=== PATIENT | female | born 1965 | race Caucasian/White ===

== ENCOUNTER 2017-07-10 06:46 | Day surgery (SDC) | payer MEDICARE, MEDICAID ==
[~2017-07-10 06:46] MED LIST: Lactated Ringers 1,000 ML IV SCH; Sodium Chloride 0.9% 10 ML Syringe FLUSH PRN
[2017-07-10] MEDS ORDERED: Midazolam 1 MG/ML 2 ML SDV IV ONE (08:00)
[2017-07-10] MEDS ORDERED: Propofol 200 MG/20 ML SDV IV ONE (08:00)
--- NOTE | 2017-07-10 08:24 | PCM.OPNOTE ---
- General Post-Op/Procedure Note Date of Surgery/Procedure: 07/10/17 Operative Procedure(s): c scope with bx Findings: proctitis sigmoid diverticulosis Pre Op Diagnosis: screening Post-Op Diagnosis: proctitis. sigmoid diverticulosis Anesthesia Technique: MAC Primary Surgeon: Ron Rodriguez Anesthesia Provider: Rossy Garcia Pathology: rectum Complications: None Condition: Good Free Text/Narrative:: see dictation
[2017-07-10 13:39] VITALS: BP 116/79
--- NOTE | 2017-07-10 16:23 | OR ---
DATE OF OPERATION: 07/10/2017 SURGEON: Ron Rodriguez MD PROCEDURE PERFORMED: Colonoscopy with cold forceps biopsy. PREOPERATIVE DIAGNOSIS: Screening colonoscopy for colon cancer. POSTOPERATIVE DIAGNOSIS: Proctitis, sigmoid diverticulosis. INDICATIONS FOR PROCEDURE: This is a 52-year-old white female who presents for her initial screening colonoscopy. She was offered and accepted same. DESCRIPTION OF OPERATION: After an excellent IV sedation was administered, digital rectal exam was performed. No marked abnormality was noted. Flexible colonoscope was inserted and advanced to the cecum without difficulty. The prep was excellent. The following findings were noted. Ascending colon, unremarkable. Transverse colon, unremarkable. Descending colon, unremarkable. Sigmoid, scattered diverticula. Rectum, the distal rectum was noted to be inflamed. Biopsies were taken. It is not sure if this was just a result of her prep or this represents a significant pathologic process. The colon was deflated as the scope was removed. The patient tolerated the procedure well and was taken to recovery in good condition. /[id number] /MODL
== END 2017-07-10 09:33 | disposition home or self-care (01) ==
LOC: FB.SDS 06:46
PROVIDERS: ATTEND Surgery
DX: Z12.11 Encounter for screening for malignant neoplasm of colon (principal); K57.30 Diverticulosis of large intestine without perforation or abscess without bleeding; F41.1 Generalized anxiety disorder; F33.0 Major depressive disorder, recurrent, mild; K21.9 Gastro-esophageal reflux disease without esophagitis; Z88.0 Allergy status to penicillin; Z88.1 Allergy status to other antibiotic agents; Z88.8 Allergy status to other drugs, medicaments and biological substances; Z79.2 Long term (current) use of antibiotics; Z79.899 Other long term (current) drug therapy
CPT/HCPCS: 00812-QZ; 88305; J2250; J2704; J7120

== ENCOUNTER 2017-11-11 09:40 | Emergency (ER) | payer MEDICARE, MEDICAID ==
[2017-11-11] MEDS: Ondansetron 4 MG Tab.DIS PO SCH (10:23)
[2017-11-11] MEDS: HYDROmorphone 2 MG/ML SDV IM ONE (10:23)
[2017-11-11 11:47] VITALS: BP 102/67
--- NOTE | 2017-11-11 11:52 | CT ---
INDICATION: Fell, knocked down by dogs. CT THORACIC SPINE: Spiral 2.5 mm axial sections were obtained through the thoracic spine and revealed degenerative changes at posterior elements of upper levels times two and off vertebral bodies anteriorly at three lower middle thoracic levels. Vertebral body and disk heights were fairly well-maintained without a definite fracture or dislocation identified. No finding to suggest spinal stenosis is identified. Total exam DLP = 232.64 mGy-cm. A multicystic dysplastic appearing left kidney is noted. The right kidney appeared relatively normal. Lungs included on the study showed no gross active disease. There were some probable subpleural lymph nodes present. No definite mediastinal abnormality was identified. IMPRESSION: 1. No definite acute fracture or dislocation. 2. Osteoarthritis. 3. Multicystic dysplastic left kidney partly visualized. Report was given in person to Dr. Castillo this a.mKt on 11/11/2017. LYNN
--- NOTE | 2017-11-11 11:56 | CT ---
INDICATION: Fell, knocked down by dogs. CT LUMBOSACRAL SPINE: Spiral 2.5 mm axial sections were obtained through the lumbosacral spine, including lower thoracic area, and revealed vertebral body and disk heights to be maintained without evidence of an acute fracture or dislocation. No spinal stenosis was identified. Total exam DLP = 304.43 mGy-cm. No significant appearing hypertrophic degenerative changes are noted. Sacroiliac joints also appear to be intact. No gross disk herniation is seen. IMPRESSION: No acute fracture or dislocation of lumbosacral spine and lower thoracic spine included. Report was given in person to Dr. Castillo this a.m. on 11/11/2017. LYNN
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
== END 2017-11-11 11:55 | disposition home or self-care (01) ==
LOC: FB.ED 09:40
DX: S39.012A Strain of muscle, fascia and tendon of lower back, initial encounter (principal); M46.90 Unspecified inflammatory spondylopathy, site unspecified; W18.39XA Other fall on same level, initial encounter
CPT/HCPCS: 72128; 72131; 96372; 99283; A9270; J1170

== ENCOUNTER 2017-12-13 20:41 | Emergency (ER) | payer MEDICARE, MEDICAID ==
[2017-12-13] MEDS ORDERED: Meclizine 25 MG Tab PO STA (21:04)
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
[2017-12-13] MEDS ORDERED: Ondansetron 8 MG Tab.DIS PO ONE (21:21)
[2017-12-13] MEDS ORDERED: Meclizine 25 MG Tab PO ONE (22:18)
[2017-12-13] MEDS ORDERED: Ondansetron 4 MG Tab.DIS PO ONE (22:18)
[2017-12-13 22:26] VITALS: BP 102/69
== END 2017-12-13 22:32 | disposition home or self-care (01) ==
LOC: FB.ED 20:41
DX: H81.12 Benign paroxysmal vertigo, left ear (principal); I10 Essential (primary) hypertension; J44.9 Chronic obstructive pulmonary disease, unspecified; Z88.0 Allergy status to penicillin; Z88.8 Allergy status to other drugs, medicaments and biological substances; Z88.5 Allergy status to narcotic agent; Z79.899 Other long term (current) drug therapy
CPT/HCPCS: 99283; A9270

== ENCOUNTER 2018-09-12 11:02 | Emergency (ER) | payer MEDICARE, MEDICAID ==
[2018-09-12] MEDS ORDERED: Sodium Chloride 0.9% 10 ML Syringe FLUSH PRN (11:33)
--- NOTE | 2018-09-12 11:36 | EDM.PDOC ---
ED HPI GENERAL MEDICAL PROBLEM - General Chief Complaint: Neurological Problem Stated Complaint: HEADACHE, DIZZY, SPEECH Time Seen by Provider: 09/12/18 11:02 Source of Information: Reports: Patient, Family History Limitations: Reports: No Limitations - History of Present Illness INITIAL COMMENTS - FREE TEXT/NARRATIVE: 53 y.o.w.f with a H/O traumatic brain injury, came to the ed because she did not feel well last night and was not able to walk this am. Her sister picked her up and brought her to the ED. Pt did not c/o any pain but had difficulty to express herself verbally by not finding the right words. Occ her speech was slurred. Pt denies H/A. No N/V/D. She has a H/O Vertigo. No other acute medical issues. BP 121/86 RR 20 Temp 98.2 pulse 77 Pulse ox 99% on RA Onset Date: 09/11/18 Onset Time: 17:00 Duration: Hour(s):, Day(s):, Getting Worse, Intermittent Location: Reports: Head Quality: Reports: Other (slurrd speech) Severity: Moderate Improves with: Reports: None Worsens with: Reports: None Context: Reports: Other (H/O Traumatic Brain injuriy) Associated Symptoms: Reports: Confusion, Weakness (Ataxia) Headache Pain Score (Numeric/FACES): 4 - Related Data Allergies Allergy/AdvReac Type Severity Reaction Status Date / Time metoclopramide HCl Allergy Itching Verified 09/12/18 13:02 [From Reglan] Penicillins Allergy Hives Verified 09/12/18 13:02 aspirin AdvReac Stomach Verified 09/12/18 13:02 Upset codeine AdvReac Vomiting Verified 09/12/18 13:02 ibuprofen [From Motrin] AdvReac Stomach Verified 09/12/18 13:02 Upset ranitidine HCl [From Zantac] AdvReac Stomach Verified 09/12/18 13:02 Upset tetracycline [Tetracycline] AdvReac Stomach Verified 09/12/18 13:02 Upset Home Meds: Home Meds Montelukast [Singulair] 10 mg PO DAILY 03/15/13 [History] Propranolol [Inderal] 10 mg PO BID 03/15/13 [History] Topiramate [Topamax] 150 mg PO BEDTIME 03/15/13 [History] busPIRone [Buspar] 20 mg PO BID 03/15/13 [History] Calcium Carbonate/Vitamin D3 [Calcium 600 + Vit D Tablet] 2 each PO DAILY [History] Fluticasone Furoate [Veramyst] 2 spray MUKUL DAILY 01/10/14 [History] B Complex With Vitamin C [Support-500] 1 each PO DAILY 07/09/17 [History] L.acidoph,Paracasei, B.lactis [Probiotic] 1 each PO DAILY 07/09/17 [History] Multivitamin [Multi-Day Vitamins] 1 each PO DAILY 07/09/17 [History] Psyllium [Metamucil] 1 gm PO DAILY 07/09/17 [History] Methocarbamol [Robaxin-750] 750 mg PO Q6HR PRN #60 tablet 11/11/17 [Rx] Past Medical History HEENT History: Reports: Impaired Vision Cardiovascular History: Reports: Hypertension Respiratory History: Reports: Asthma, COPD Gastrointestinal History: Reports: GERD 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 Psychiatric History: Reports: Anxiety, Bipolar, Depression, Panic Attack Endocrine/Metabolic History: Reports: None Hematologic History: Reports: None Immunologic History: Reports: None Oncologic (Cancer) History: Reports: None Dermatologic History: Reports: None - Past Surgical History HEENT Surgical History: Reports: Oral Surgery Cardiovascular Surgical History: Reports: None Respiratory Surgical History: Reports: None GI Surgical History: Reports: Appendectomy, Cholecystectomy Female Surgical History: Reports: Hysterectomy, Salpingo-Oophorectomy Endocrine Surgical History: Reports: None Neurological Surgical History: Reports: None Musculoskeletal Surgical History: Reports: Arthroscopic Knee, Carpal Tunnel, Knee Replacement, Shoulder Surgery Oncologic Surgical History: Reports: None Social & Family History - Family History Family Medical History: Noncontributory - Caffeine Use Caffeine Use: Reports: None - Living Situation & Occupation Living situation: Reports: ED ROS GENERAL - Review of Systems Review Of Systems: See Below Constitutional: Reports: Weakness HEENT: Reports: Vertigo Respiratory: Reports: No Symptoms Cardiovascular: Reports: No Symptoms Endocrine: Reports: No Symptoms GI/Abdominal: Reports: No Symptoms : Reports: No Symptoms Musculoskeletal: Reports: No Symptoms Skin: Reports: No Symptoms Neurological: Reports: Confusion, Trouble Speaking, Difficulty Walking, Weakness , Gait Disturbance Psychiatric: Reports: No Symptoms Hematologic/Lymphatic: Reports: No Symptoms Immunologic: Reports: No Symptoms ED EXAM, NEURO - Physical Exam Exam: See Below Exam Limited By: No Limitations General Appearance: Alert, WD/WN, Moderate Distress Eye Exam: Bilateral Eye: Nystagmus (bilat) Ears: Normal External Exam Nose: Normal Inspection, Normal Mucosa Throat/Mouth: Normal Inspection, Normal Lips, Normal Voice, No Airway Compromise Head Exam: Atraumatic, Normocephalic Neck: Normal Inspection, Supple, Non-Tender, Full Range of Motion Respiratory/Chest: No Respiratory Distress, Lungs Clear, Normal Breath Sounds, No Accessory Muscle Use, Chest Non-Tender Cardiovascular: Normal Peripheral Pulses, Regular Rate, Rhythm, No Edema, No Gallop, No JVD, No Murmur GI/Abdominal: Normal Bowel Sounds, Soft, Non-Tender, No Organomegaly, No Distention, No Abnormal Bruit, No Mass, Pelvis Stable (Female) Exam: Deferred Rectal (Female) Exam: Deferred Neurological: Alert, Normal Mood/Affect, Normal Dorsiflexion, CN II-XII Intact, Abnormal Gait, Ataxia Back Exam: Normal Inspection, Full Range of Motion Extremities: Normal Inspection, Normal Range of Motion, Non-Tender, No Pedal Edema Psychiatric: Normal Affect, Normal Mood Skin Exam: Warm, Dry, Intact, Normal Color, No Rash EKG INTERPRETATION EKG Date: 09/12/18 Time: 12:05 Rhythm: NSR Rate (Beats/Min): 63 [place]: Normal P-Wave: Present QRS: Normal ST-T: Normal QT: Normal Comparison: NA - No Prior EKG Course - Vital Signs Text/Narrative:: 53 y.o.w.f with a H/O traumatic brain injury, came to the ed because she did not feel well last night and was not able to walk this am. Her sister picked her up and brought her to the ED. Pt did not c/o any pain but had difficulty to express herself verbally by not finding the right words. Occ her speech was slurred. Pt denies H/A. No N/V/D. She has a H/O Vertigo. No other acute medical issues. BP 121/86 RR 20 Temp 98.2 pulse 77 Pulse ox 99% on RA PE: WNWD W F with Ataxia, slurred speech and word finding difficulties Imaging: CT head: Small lacunar infarct left BG Labs: CBC nl exept WBC 4.1 BMP nl except Cr .1 GFR 50 Impression: Ataxia, Aphasia (Word finding difficulties, slurred speech). Lacunar infarct left basal ganglia Tx: non. Pt is allergic to ASA 1.25 pm Consultation: Dr Mdcowell, Neurology [facility]: Call Hospitalist. 1.40 pm Consultation: Dr. Tay, Hospitalist: Sent to [place] 1.[address] Cano, Hospitalist, [facility]: No further Tx recommended, Accepted the Pt for transfer and further care. Reexam: pt was stable in the ED Plan: Transfer to [facility], agreed Last Recorded V/S: Last Vital Signs Temp 36.9 C 09/12/18 11:05 Pulse 68 09/12/18 14:04 Resp 19 09/12/18 14:04 BP 117/80 09/12/18 14:04 Pulse Ox 100 09/12/18 14:04 - Orders/Labs/Meds Labs: Laboratory Tests 09/12/18 09/12/18 09/12/18 Range/Units 11:45 11:45 11:45 WBC 4.1 L (4.5-12.0) X10-3/uL RBC 4.53 (3.23-5.20) x10(6)uL Hgb 13.6 (11.5-15.5) g/dL Hct 41.6 (30.0-51.3) % MCV 91.9 (80-96) fL MCH 30.0 (27.7-33.6) pg MCHC 32.7 (32.2-35.4) g/dL RDW 11.7 (11.5-15.5) % Plt Count 242 (125-369) X10(3)uL MPV 6.7 L (7.4-10.4) fL Neut % (Auto) 59.8 (46-82) % Lymph % (Auto) 29.7 (13-37) % [place] % (Auto) 9.7 (4-12) % Eos % (Auto) 0 L (1.0-5.0) % Baso % (Auto) 1 (0-2) % Neut # (Auto) 2.5 (1.6-8.3) # Lymph # (Auto) 1.2 (0.6-5.0) # [place] # (Auto) 0.4 (0.0-1.3) # Eos # (Auto) 0.0 (0.0-0.8) # Baso # (Auto) 0.0 (0.0-0.2) # PT 10.2 (8.7-11.1) INR 1.05 (0.89-1.13) Sodium 141 (135-145) mmol/L Potassium 4.5 (3.5-5.3) mmol/L Chloride 107 (100-110) mmol/L Carbon Dioxide 27 (21-32) mmol/L BUN 17 (7-18) mg/dL Creatinine 1.1 H (0.55-1.02) mg/dL Est Cr Clr Drug Dosing TNP Estimated GFR (MDRD) 52 L (>60) BUN/Creatinine Ratio 15.5 (9-20) Glucose 96 (80-116) mg/dL Calcium 9.2 (8.6-10.2) mg/dL Urine Color (YELLOW) Urine Appearance (CLEAR) Urine pH (5.0-6.5) Ur Specific [place] (1.010-1.025) Urine Protein (NEGATIVE) mg/dL Urine Glucose (UA) (NORMAL) mg/dL Urine Ketones (NEGATIVE) mg/dL Urine Occult Blood (NEGATIVE) Urine Nitrite (NEGATIVE) Urine Bilirubin (NEGATIVE) Urine Urobilinogen (NEGATIVE) mg/dL Ur Leukocyte Esterase (NEGATIVE) Urine WBC (0-5) Ur Squamous Epith Cells (NS,R,O) Urine Bacteria (NS) 09/12/18 Range/Units 12:40 WBC (4.5-12.0) X10-3/uL RBC (3.23-5.20) x10(6)uL Hgb (11.5-15.5) g/dL Hct (30.0-51.3) % MCV (80-96) fL MCH (27.7-33.6) pg MCHC (32.2-35.4) g/dL RDW (11.5-15.5) % Plt Count (125-369) X10(3)uL MPV (7.4-10.4) fL Neut % (Auto) (46-82) % Lymph % (Auto) (13-37) % [place] % (Auto) (4-12) % Eos % (Auto) (1.0-5.0) % Baso % (Auto) (0-2) % Neut # (Auto) (1.6-8.3) # Lymph # (Auto) (0.6-5.0) # [place] # (Auto) (0.0-1.3) # Eos # (Auto) (0.0-0.8) # Baso # (Auto) (0.0-0.2) # PT (8.7-11.1) INR (0.89-1.13) Sodium (135-145) mmol/L Potassium (3.5-5.3) mmol/L Chloride (100-110) mmol/L Carbon Dioxide (21-32) mmol/L BUN (7-18) mg/dL Creatinine (0.55-1.02) mg/dL Est Cr Clr Drug Dosing Estimated GFR (MDRD) (>60) BUN/Creatinine Ratio (9-20) Glucose (80-116) mg/dL Calcium (8.6-10.2) mg/dL Urine Color Yellow (YELLOW) Urine Appearance Clear (CLEAR) Urine pH 7.0 H (5.0-6.5) Ur Specific [place] 1.015 (1.010-1.025) Urine Protein Negative (NEGATIVE) mg/dL Urine Glucose (UA) Normal (NORMAL) mg/dL Urine Ketones Negative (NEGATIVE) mg/dL Urine Occult Blood Negative (NEGATIVE) Urine Nitrite Negative (NEGATIVE) Urine Bilirubin Negative (NEGATIVE) Urine Urobilinogen Normal (NEGATIVE) mg/dL Ur Leukocyte Esterase Negative (NEGATIVE) Urine WBC 0-5 (0-5) Ur Squamous Epith Cells Rare (NS,R,O) Urine Bacteria Few H (NS) Meds: Medications Discontinued Medications Generic Name Dose Route Start Last Admin Trade Name Freq PRN Reason Stop Dose Admin Meclizine HCl 25 mg 09/12/18 12:11 09/12/18 12:44 Antivert PO 09/12/18 12:12 25 mg ONETIME ONE Administration Sodium Chloride 10 ml 09/12/18 11:33 Saline Flush FLUSH ASDIRECTED PRN Keep Vein Open Departure - Departure Time of Disposition: 14:00 Disposition: DC/Tfer to Acute Hospital 02 Condition: Fair Clinical Impression: Aphasia - Discharge Information Referrals: Dorian Tom MD [Primary Care Provider] - Forms: ED Department Discharge
[2018-09-12] MEDS ORDERED: Meclizine 25 MG Tab PO ONE (12:11)
--- NOTE | 2018-09-12 14:43 | CT ---
INDICATION: Ataxia. CT HEAD WITHOUT CONTRAST: Spiral examination of the brain axially was obtained with sagittal and coronal reconstructions, 09/12/18 - no comparisons. Total exam DLP = 1,348.07 mGy-cm. There is no shift of midline structures or ventricular abnormalities identified. No arterial calcifications were seen. Orbits appear to be intact. There is question of one tiny area of decreased density in the left basal ganglia, which could represent a tiny lacunar infarct but should be correlated clinically. Otherwise, no abnormal areas of density were suggested. If symptoms persist - if occult abnormality is suspected clinically, examination with IV contrast with CT or MRI is recommended for further evaluation. No cranial abnormality was seen. Mastoid air cells and visualized paranasal sinuses were well-aerated. IMPRESSION: Except for question of a tiny lacunar infarct in the left basal ganglia, CT of the head without IV contrast appears normal - no acute intracranial abnormality suggested. I would suggest an MRI or CT with IV contrast, if occult abnormality is suspected clinically. Report was called to Dr. Wolfe at 1236 hours on 09/12/18. [facility]
[2018-09-12 21:40] VITALS: BP 117/80
== END 2018-09-12 14:28 ==
LOC: FB.ED 11:02
DX: I63.81 Other cerebral infarction due to occlusion or stenosis of small artery (principal); R27.0 Ataxia, unspecified; R47.01 Aphasia; Z88.8 Allergy status to other drugs, medicaments and biological substances; Z88.5 Allergy status to narcotic agent; Z88.0 Allergy status to penicillin; Z88.1 Allergy status to other antibiotic agents; I10 Essential (primary) hypertension; J44.9 Chronic obstructive pulmonary disease, unspecified
CPT/HCPCS: 36415; 70450; 80048; 81001; 85025; 85610; 93005; 99285; A9270

== ENCOUNTER 2018-09-26 19:42 | Observation (INO) | payer MEDICARE, MEDICAID ==
--- NOTE | 2018-09-26 20:05 | EDM.PDOC ---
ED HPI GENERAL MEDICAL PROBLEM - General Stated Complaint: STROKE SYMPTOMS Time Seen by Provider: 09/26/18 19:42 Source of Information: Reports: Patient, Family History Limitations: Reports: Other (weak) - History of Present Illness INITIAL COMMENTS - FREE TEXT/NARRATIVE: 53 y.o.w.f with a H/o posttraumatic brain injury > 30 years ago was seen in this ED on 09/12/2018 due to Ataxia, Aphasia, which started > 4 hours [employer] RISK. Pt was transferred to [facility] where she received a complete W/A including MRI which, as per , was all neg. Pt was admitted in [facility] for 3 days. As per , pt was not on a heart monitor while in [facility]. Today, at about 7. 30 pm, pt had a near syncope, after dinner. Her prevented the fall and brought her to the ED. Pt was not able to ambulate, because of right sided weakness with Aphasia, which is > 1 week old, as per . Pt felt some nausea as well. No vomiting, no C/P, no SOB. Pt denied palpitation. No Trauma.Pt is a poor historian, HPI was given by her . BP 114/76 RR 17 Pulse ox 98% on RA Pulse 79 Temp 36.7 Onset Date: 09/26/18 Onset Time: 07:30 Duration: Minutes:, Hour(s): Location: Reports: Generalized Quality: Reports: Other (sudden weakness) Severity: Moderate Improves with: Reports: Other (supine position) Worsens with: Reports: Other (upright position) Context: Reports: Other (pt passed out after dinner at [employer]) Associated Symptoms: Reports: Weakness - Related Data Allergies Allergy/AdvReac Type Severity Reaction Status Date / Time metoclopramide HCl Allergy Itching Verified 09/26/18 20:33 [From Reglan] Penicillins Allergy Hives Verified 09/26/18 20:33 aspirin AdvReac Stomach Verified 09/26/18 20:33 Upset codeine AdvReac Vomiting Verified 09/26/18 20:33 ibuprofen [From Motrin] AdvReac Stomach Verified 09/26/18 20:33 Upset ranitidine HCl [From Zantac] AdvReac Stomach Verified 09/26/18 20:33 Upset tetracycline [Tetracycline] AdvReac Stomach Verified 09/26/18 20:33 Upset Home Meds: Home Meds Montelukast [Singulair] 10 mg PO DAILY 03/15/13 [History] Topiramate [Topamax] 150 mg PO BEDTIME 03/15/13 [History] busPIRone [Buspar] 30 mg PO BID 03/15/13 [History] Cholecalciferol (Vitamin D3) [Vitamin D] 1,000 cap PO DAILY 09/27/18 [History] Propranolol [Inderal] 20 mg PO BID 09/27/18 [History] Venlafaxine HCl [Venlafaxine HCl ER] 300 mg PO DAILY 09/27/18 [History] Past Medical History HEENT History: Reports: Impaired Vision Cardiovascular History: Reports: Hypertension Respiratory History: Reports: Asthma, COPD Gastrointestinal History: Reports: [employer] History: Reports: Neurological History: Reports: Migraines Other Neuro History: Hx traumatic brain injury. Psychiatric History: Reports: Anxiety, Bipolar, Depression, Panic Attack Endocrine/Metabolic History: Reports: None Hematologic History: Reports: None Immunologic History: Reports: None Oncologic (Cancer) History: Reports: None Dermatologic History: Reports: None - Past Surgical History HEENT Surgical History: Reports: Oral Surgery Cardiovascular Surgical History: Reports: None Respiratory Surgical History: Reports: None GI Surgical History: Reports: Appendectomy, Cholecystectomy Female Surgical History: Reports: Hysterectomy, Salpingo-Oophorectomy Endocrine Surgical History: Reports: None Neurological Surgical History: Reports: None Musculoskeletal Surgical History: Reports: Arthroscopic Knee, Carpal Tunnel, Knee Replacement, Shoulder Surgery Oncologic Surgical History: Reports: None Social & Family History - Family History Family Medical History: Noncontributory - Caffeine Use Caffeine Use: Reports: None - Living Situation & Occupation Living situation: Reports: ED ROS GENERAL - Review of Systems Review Of Systems: See Below Constitutional: Reports: Weakness HEENT: Reports: No Symptoms Respiratory: Reports: No Symptoms Cardiovascular: Reports: Syncope Endocrine: Reports: No Symptoms GI/Abdominal: Reports: No Symptoms : Reports: No Symptoms Musculoskeletal: Reports: No Symptoms Skin: Reports: No Symptoms Neurological: Reports: Syncope Psychiatric: Reports: No Symptoms Hematologic/Lymphatic: Reports: No Symptoms Immunologic: Reports: No Symptoms ED EXAM, NEURO - Physical Exam Exam: See Below Exam Limited By: Other (weak) General Appearance: Alert, WD/WN, Mild Distress, Thin Eye Exam: Bilateral Eye: Normal Inspection Ears: Normal External Exam Nose: Normal Inspection Throat/Mouth: Normal Inspection, Normal Lips, Normal Teeth, Normal Gums, Normal Oropharynx, Normal Voice, No Airway Compromise Head Exam: Atraumatic, Normocephalic Neck: Normal Inspection, Supple, Non-Tender, Full Range of Motion Respiratory/Chest: No Respiratory Distress, Lungs Clear, Normal Breath Sounds, No Accessory Muscle Use, Chest Non-Tender Cardiovascular: Normal Peripheral Pulses, Regular Rate, Rhythm, No Edema GI/Abdominal: Normal Bowel Sounds, Soft, Non-Tender, No Organomegaly, No Distention, No Abnormal Bruit, No Mass, Pelvis Stable (Female) Exam: Deferred Rectal (Female) Exam: Deferred Neurological: Alert, Normal Mood/Affect, Normal Dorsiflexion, CN II-XII Intact, Abnormal Gait, Ataxia, Abnormal Finger to Nose Back Exam: Normal Inspection Extremities: Normal Inspection, Normal Range of Motion, Non-Tender Psychiatric: Normal Affect, Normal Mood Skin Exam: Warm, Dry, Intact, Normal Color, No Rash EKG INTERPRETATION EKG Date: 09/26/18 Time: 20:10 Rhythm: NSR Rate (Beats/Min): 73 [place]: Normal P-Wave: Present QRS: Normal ST-T: Normal QT: Normal Comparison: NA - No Prior EKG Course - Vital Signs Text/Narrative:: 53 y.o.w.f with a H/o posttraumatic brain injury > 30 years ago was seen in this ED on 09/12/2018 due to Ataxia, Aphasia, which started > 4 hours [employer] RISK. Pt was transferred to [facility] where she received a complete W/A including MRI which, as per , was all neg. Pt was admitted in [facility] for 3 days. As per , pt was not on a heart monitor while in [facility]. Today, at about 7. 30 pm, pt had a near syncope, after dinner. Her prevented the fall and brought her to the ED. Pt was not able to ambulate, because of right sided weakness with Aphasia, which is > 1 week old, as per . Pt felt some nausea as well. No vomiting, no C/P, no SOB. Pt denied palpitation. No Trauma.Pt is a poor historian, HPI was given by her . BP 114/76 RR 17 Pulse ox 98% on RA Pulse 79 Temp 36.7 PE: This 53 y.o.w.f with Pos FF and pos FN test, Ataxia and aphasia > 1 week old DDx: Postprandial Syncope Labs CBC nl BMP nl except Cr. 1.1 GFR 52 Gcl 75 Impression: 1) Syncopal episode 2) Ataxia 3) Traumatic Brain injury 30 years ago Tx: D5 1/2 NS, heart monitor, Zofran Reexam: Improved, brain in the ED Plan: Admit for OB on Tele Last Recorded V/S: Last Vital Signs Temp 36.4 C 09/27/18 14:00 Pulse 78 09/27/18 14:00 Resp 16 09/27/18 14:00 BP 104/68 09/27/18 14:00 Pulse Ox 99 09/27/18 14:00 - Orders/Labs/Meds Labs: Laboratory Tests 09/26/18 09/26/18 09/26/18 Range/Units 20:09 20:09 20:09 WBC 5.2 (4.5-12.0) X10-3/uL RBC 4.43 (3.23-5.20) x10(6)uL Hgb 13.6 (11.5-15.5) g/dL Hct 40.9 (30.0-51.3) % MCV 92.2 (80-96) fL MCH 30.6 (27.7-33.6) pg MCHC 33.2 (32.2-35.4) g/dL RDW 11.6 (11.5-15.5) % Plt Count 244 (125-369) X10(3)uL MPV 6.5 L (7.4-10.4) fL Neut % (Auto) 60.5 (46-82) % Lymph % (Auto) 31.3 (13-37) % [place] % (Auto) 7.2 (4-12) % Eos % (Auto) 0 L (1.0-5.0) % Baso % (Auto) 1 (0-2) % Neut # (Auto) 3.2 (1.6-8.3) # Lymph # (Auto) 1.6 (0.6-5.0) # [place] # (Auto) 0.4 (0.0-1.3) # Eos # (Auto) 0.0 (0.0-0.8) # Baso # (Auto) 0.0 (0.0-0.2) # Sodium 143 (135-145) mmol/L Potassium 3.5 D (3.5-5.3) mmol/L Chloride 106 (100-110) mmol/L Carbon Dioxide 28 (21-32) mmol/L BUN 17 (7-18) mg/dL Creatinine 1.1 H (0.55-1.02) mg/dL Est Cr Clr Drug Dosing TNP Estimated GFR (MDRD) 52 L (>60) BUN/Creatinine Ratio 15.5 (9-20) Glucose 79 L (80-116) mg/dL Calcium 8.7 (8.6-10.2) mg/dL Magnesium (1.8-2.5) mg/dL Creatine Kinase 40 L (60-160) IU/L 09/26/18 Range/Units 20:09 WBC (4.5-12.0) X10-3/uL RBC (3.23-5.20) x10(6)uL Hgb (11.5-15.5) g/dL Hct (30.0-51.3) % MCV (80-96) fL MCH (27.7-33.6) pg MCHC (32.2-35.4) g/dL RDW (11.5-15.5) % Plt Count (125-369) X10(3)uL MPV (7.4-10.4) fL Neut % (Auto) (46-82) % Lymph % (Auto) (13-37) % [place] % (Auto) (4-12) % Eos % (Auto) (1.0-5.0) % Baso % (Auto) (0-2) % Neut # (Auto) (1.6-8.3) # Lymph # (Auto) (0.6-5.0) # [place] # (Auto) (0.0-1.3) # Eos # (Auto) (0.0-0.8) # Baso # (Auto) (0.0-0.2) # Sodium (135-145) mmol/L Potassium (3.5-5.3) mmol/L Chloride (100-110) mmol/L Carbon Dioxide (21-32) mmol/L BUN (7-18) mg/dL Creatinine (0.55-1.02) mg/dL Est Cr Clr Drug Dosing Estimated GFR (MDRD) (>60) BUN/Creatinine Ratio (9-20) Glucose (80-116) mg/dL Calcium (8.6-10.2) mg/dL Magnesium 2.0 (1.8-2.5) mg/dL Creatine Kinase (60-160) IU/L Meds: Medications Discontinued Medications Generic Name Dose Route Start Last Admin Trade Name Freq PRN Reason Stop Dose Admin Buspirone HCl 30 mg 09/27/18 09:00 09/27/18 10:51 Buspar PO Not Given BID LORI Dextrose/Sodium Chloride 1,000 mls @ 125 mls/hr 09/26/18 20:45 09/27/18 05:19 Dextrose 5%-1/2 Ns IV 125 mls/hr ASDIRECTED LORI Administration Buspirone 30mgOwn 1 each 09/27/18 10:30 09/27/18 10:35 Med PO 1 each BID LORI Administration Ondansetron HCl 8 mg 09/26/18 20:39 09/26/18 20:45 Zofran Odt PO 09/26/18 20:40 8 mg ONETIME ONE Administration Ondansetron HCl 8 mg 09/26/18 21:09 Zofran IV Q6H PRN Nausea/Vomiting Propranolol HCl 20 mg 09/27/18 09:00 09/27/18 10:51 Inderal PO Not Given BID LORI Propranolol HCl 20 mg 09/27/18 10:20 Inderal PO BID LORI Propranolol HCl 20 mg 09/27/18 11:00 09/27/18 11:14 Inderal PO 20 mg BID LORI Administration Venlafaxine HCl 300 mg 09/27/18 09:00 09/27/18 10:35 Effexor Xr PO 300 mg DAILY LORI Administration Departure - Departure Time of Disposition: 15:00 Disposition: Refer to Observation Condition: Fair Clinical Impression: Syncope - Discharge Information
[2018-09-26] MEDS ORDERED: Ondansetron 8 MG Tab.DIS PO ONE (20:39)
[2018-09-26] MEDS: Dextrose 5%-0.45% NaCl 1,000 ML IV SCH (20:57)
[2018-09-26] MEDS ORDERED: Ondansetron 4 MG/2 ML SDV IV PRN (21:09)
[2018-09-27] MEDS: Dextrose 5%-0.45% NaCl 1,000 ML IV SCH (05:19)
[2018-09-27] MEDS ORDERED: VENLAFAXINE 150 MG PO SCH (09:00)
[2018-09-27] MEDS ORDERED: Propranolol 20 MG Tab PO SCH (09:00)
[2018-09-27] MEDS ORDERED: busPIRone 10 MG Tab PO SCH (09:00)
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
[2018-09-27] MEDS ORDERED: PROPRANOLOL 40 MG PO SCH ×2 (10:20→11:00)
[2018-09-27] MEDS ORDERED: BUSPIRONE 30 MG PO SCH (10:30)
--- NOTE | 2018-09-27 11:07 | DISCH ---
DISCHARGE DATE: 09/27/2018 PRIMARY FINAL DIAGNOSIS: Near syncopal event. OTHER DIAGNOSES: 1. Anxiety and depression. 2. Migraine disorder. OPERATIONS: None. COMPLICATIONS: None. SUMMARY: Lolis is a 53-year-old young woman with a remote history of a concussive head injury. Subsequent migraine disorder, anxiety, and depression. She had a neurologic type episode with weakness, lethargy, and poor speech. She was evaluated as an inpatient at [facility] with no specific neurologic abnormalities found and suspicion for migraine disorder. She was sent home, but was admitted from the ER yesterday after an episode where she had a near syncopal episode in [employer]. Her described her slumping over to the side from a sitting position. He had to struggle hard to get her up. She was apparently weak, confused, disoriented, lethargic, and he essentially had to carry out of the [place]. She was admitted to observation, placed on telemetry and overnight her telemetry has remained good. She states she has returned to her baseline after being here. The patient is deemed suitable for discharge to home to have continued evaluation as an outpatient. DISCHARGE MEDICATIONS: She is to continue medications as follows: 1. Topamax 150 mg at bedtime. 2. Singulair 10 mg daily. 3. Vitamin D 1000 units daily. 4. Effexor XR 150 mg b.i.d. 5. Propranolol 20 mg b.i.d. 6. BuSpar 30 mg b.i.d. Consideration should be given to potential decrease in her medications in the future as able because they are possible confounding effect on lethargy, etc. Workup scheduled to proceed as an outpatient include reporting to clinic on Saturday morning for a 48-hour Holter monitor application. She has a followup Neurology appointment in 6 days and I will also set up a sleep-deprived EEG hopefully to be done on the same day as her Neurology appointment. She is to call should there be questions or problems prior to her followup visits. /[id number] CHER/ROSINA
[2018-09-27 16:42] VITALS: BP 104/68
== END 2018-09-27 15:40 | disposition home or self-care (01) ==
LOC: FB.ED 19:42 → FB.MS 21:06
PROVIDERS: ADMIT Emergency Medicine; ATTEND Emergency Medicine
DX: R55 Syncope and collapse (principal); G43.909 Migraine, unspecified, not intractable, without status migrainosus; F41.9 Anxiety disorder, unspecified; F32.9 Major depressive disorder, single episode, unspecified; R53.1 Weakness; R53.83 Other fatigue; Z90.49 Acquired absence of other specified parts of digestive tract; Z88.8 Allergy status to other drugs, medicaments and biological substances; Z88.0 Allergy status to penicillin; Z88.5 Allergy status to narcotic agent; Z88.6 Allergy status to analgesic agent; Z88.1 Allergy status to other antibiotic agents; Z79.899 Other long term (current) drug therapy; Z87.820 Personal history of traumatic brain injury
CPT/HCPCS: 36415; 80048; 81001; 82550; 83735; 85025; 87086; 87088; 87186; 93005; 96360; 96361; 99284-25; A9270-GY; G0378; J7030

== ENCOUNTER 2018-09-29 15:17 | Emergency (ER) | payer MEDICARE, MEDICAID ==
[2018-09-29] MEDS ORDERED: Sodium Chloride 0.9% 1,000 ML IV ONE (15:21)
[2018-09-29] MEDS ORDERED: levETIRAcetam 500 MG in Sodium Chloride 0.9% 100 ML IV ONE (15:30)
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
[2018-09-29] MEDS ORDERED: Sodium Chloride 0.9% 10 ML Syringe FLUSH PRN (16:44)
[2018-09-29 16:50] VITALS: BP 128/79
--- NOTE | 2018-09-30 08:56 | CT ---
INDICATION: Altered level of consciousness. CT HEAD WITHOUT CONTRAST: Spiral 3.75 mm axial sections were obtained through the brain with sagittal and coronal reconstructions, 09/29/18, and compared with 09/12/18. Total exam DLP = 1,193.45 mGy-cm. There is again no shift of midline structures, ventricular abnormalities, or definite abnormal areas of density, except for suggestion of a lacunar infarct at the left basal ganglia, which may actually simply be on the basis of slightly prominent temporal horn of the left lateral ventricle. No bleeding site or hematoma was seen. The paranasal sinuses and mastoid air cells appear to be fairly well-aerated. No cranial abnormality was suggested. IMPRESSION: Essentially normal CT brain, stable compared with 09/12/18. Report was called to Dr. Faye at 1552 hours on 09/29/18. [facility]
--- NOTE | 2018-09-30 08:58 | CR ---
INDICATION: Altered level of consciousness. CHEST: An AP upright view of the chest was obtained 09/29/18 and compared with 06/08/18, revealing the heart to remain normal in size and shape. The mediastinum was essentially unremarkable. Overlying EKG leads are noted. Overlying snaps are seen. An active infiltrate or effusion was not identified. IMPRESSION: No acute process - no definite active disease. MTDD
== END 2018-09-29 18:20 ==
LOC: FB.ED 15:17
DX: R41.0 Disorientation, unspecified (principal); R55 Syncope and collapse; N30.00 Acute cystitis without hematuria; R56.9 Unspecified convulsions; I10 Essential (primary) hypertension; J44.9 Chronic obstructive pulmonary disease, unspecified; Z88.5 Allergy status to narcotic agent; Z88.8 Allergy status to other drugs, medicaments and biological substances; Z79.899 Other long term (current) drug therapy
CPT/HCPCS: 36415; 70450; 71045; 80053; 80305-QW; 81001; 83605; 83735; 84484; 85025; 85610; 85730; 87086; 87088; 87186; 93005; 96361; 96365; 99285-25; G0480; J1953; J7030

== ENCOUNTER 2019-01-18 04:20 | Emergency (ER) | payer MEDICARE, MEDICAID ==
[2019-01-18 04:34] VITALS: BP 99/75
[2019-01-18] MEDS ORDERED: LORazepam 2 MG/ML SDV IM ONE (04:42)
--- NOTE | 2019-01-18 04:44 | EDM.PDOCBH ---
ED HPI GENERAL MEDICAL PROBLEM - General Chief Complaint: Behavioral/Psych Stated Complaint: ANXIETY Time Seen by Provider: 01/18/19 04:43 Source of Information: Reports: Patient History Limitations: Reports: No Limitations - History of Present Illness INITIAL COMMENTS - FREE TEXT/NARRATIVE: Complains of an anxiety attack. Feels restless,shaky,starting suddenly at 2 Am this morning. Recent stress at home. No chest pain or SOB. Unable to sleep. - Related Data Allergies Allergy/AdvReac Type Severity Reaction Status Date / Time metoclopramide HCl Allergy Itching Verified 01/18/19 04:29 [From Reglan] Penicillins Allergy Hives Verified 01/18/19 04:29 aspirin AdvReac Stomach Verified 01/18/19 04:29 Upset codeine AdvReac Vomiting Verified 01/18/19 04:29 ibuprofen [From Motrin] AdvReac Stomach Verified 01/18/19 04:29 Upset ranitidine HCl [From Zantac] AdvReac Stomach Verified 01/18/19 04:29 Upset tetracycline [Tetracycline] AdvReac Stomach Verified 01/18/19 04:29 Upset Home Meds: Home Meds Montelukast [Singulair] 10 mg PO DAILY 03/15/13 [History] Topiramate [Topamax] 150 mg PO BEDTIME 03/15/13 [History] busPIRone [Buspar] 30 mg PO BID 03/15/13 [History] Cholecalciferol (Vitamin D3) [Vitamin D] 1,000 cap PO DAILY 09/27/18 [History] Propranolol [Inderal] 20 mg PO BID 09/27/18 [History] Venlafaxine HCl [Venlafaxine HCl ER] 300 mg PO DAILY 09/27/18 [History] Prazosin HCl [Prazosin] 2 mg PO BEDTIME 01/18/19 [History] Past Medical History HEENT History: Reports: Impaired Vision Cardiovascular History: Reports: Hypertension Respiratory History: Reports: Asthma, COPD Gastrointestinal History: Reports: GERD [employer] History: Reports: Neurological History: Reports: Migraines Other Neuro History: Hx traumatic brain injury. Psychiatric History: Reports: Anxiety, Bipolar, Depression, Panic Attack Endocrine/Metabolic History: Reports: None Hematologic History: Reports: None Immunologic History: Reports: None Oncologic (Cancer) History: Reports: None Dermatologic History: Reports: None - Past Surgical History HEENT Surgical History: Reports: Oral Surgery Cardiovascular Surgical History: Reports: None Respiratory Surgical History: Reports: None GI Surgical History: Reports: Appendectomy, Cholecystectomy Female Surgical History: Reports: Hysterectomy, Salpingo-Oophorectomy Endocrine Surgical History: Reports: None Neurological Surgical History: Reports: None Musculoskeletal Surgical History: Reports: Arthroscopic Knee, Carpal Tunnel, Knee Replacement, Shoulder Surgery Oncologic Surgical History: Reports: None Social & Family History - Family History Family Medical History: Noncontributory - Caffeine Use Caffeine Use: Reports: None - Living Situation & Occupation Living situation: Reports: ED ROS GENERAL - Review of Systems Review Of Systems: ROS reveals no pertinent complaints other than HPI. ED EXAM, BEHAVIORAL HEALTH - Physical Exam Exam: See Below Exam Limited By: No Limitations General Appearance: Alert, No Apparent Distress, Anxious Throat/Mouth: Normal Inspection Neck: Normal Inspection Cardiovascular: Normal Peripheral Pulses Neurological: Alert, CN II-XII Intact, Normal Cognition, Oriented x 3 Psychiatric: Alert, Restless Skin Exam: Warm COURSE, BEHAVIORAL HEALTH COMP - Course Vital Signs: Last Vital Signs Temp 97.6 F 01/18/19 04:32 Pulse Resp 16 01/18/19 04:32 BP 99/75 01/18/19 04:32 Pulse Ox 100 01/18/19 04:32 Orders, Labs, Meds: Medications Discontinued Medications Generic Name Dose Route Start Last Admin Trade Name Anahy PRN Reason Stop Dose Admin Lorazepam 1 mg 01/18/19 04:42 01/18/19 04:45 Ativan IM 01/18/19 04:43 1 mg ONETIME ONE Administration Departure - Departure Time of Disposition: 10:01 Disposition: Home, Self-Care 01 Condition: Good Clinical Impression: Panic disorder, Anxiety - Discharge Information Referrals: Dorian Tom MD [Primary Care Provider] - Forms: ED Department Discharge - Problem List & Annotations (1) Anxiety SNOMED Code(s): 90434898 Code(s): F41.9 - ANXIETY DISORDER, UNSPECIFIED Status: Chronic Annotation /Comment:: Lolis was administered Ativan 1 mg IM, and returned home following a period of observation. No change in psychotropic meds. - Problem List Review Problem List Initiated/Reviewed/Updated: Yes - Assessment/Plan Plan: Patient was given,and responded well to,Lorazepam 1 mg IM. DC home. Follow up in the office PRN
== END 2019-01-18 04:52 | disposition home or self-care (01) ==
LOC: FB.ED 04:20
DX: F41.0 Panic disorder [episodic paroxysmal anxiety] (principal); I10 Essential (primary) hypertension; J44.9 Chronic obstructive pulmonary disease, unspecified; F41.9 Anxiety disorder, unspecified; Z88.0 Allergy status to penicillin; Z88.5 Allergy status to narcotic agent; Z88.6 Allergy status to analgesic agent; Z88.8 Allergy status to other drugs, medicaments and biological substances; Z88.1 Allergy status to other antibiotic agents; Z79.899 Other long term (current) drug therapy
CPT/HCPCS: 96372; 99282; J2060; 99283

== ENCOUNTER 2020-02-29 13:15 | Inpatient (IN) | payer MEDICARE, MEDICAID ==
[2020-02-29] MEDS ORDERED: LORazepam 2 MG/ML SDV IVPUSH ONE (13:42)
--- NOTE | 2020-02-29 13:51 | EDM.PDOC ---
ED HPI GENERAL MEDICAL PROBLEM - General Chief Complaint: Abdominal Pain Stated Complaint: FEVER, CRAMPS, VOMITTING Time Seen by Provider: 02/29/20 13:30 Source of Information: Reports: Patient, Old Records, Other (Clinic Labs) History Limitations: Reports: No Limitations - History of Present Illness INITIAL COMMENTS - FREE TEXT/NARRATIVE: Lolis comes into [facility] ED from the Clinic with a 3 day hx of some upper abdominal pain, crampy in nature, nausea but no emesis, and numerous watery diarrheal stools. She reports suspected fever and sweats, but never took a temp. There is no known exposure. She does all her own cooking, and did not rewarm food. Her spouse is asx. adbomen Pain Score (Numeric/FACES): 7 - Related Data Allergies Allergy/AdvReac Type Severity Reaction Status Date / Time metoclopramide HCl Allergy Itching Verified 01/18/19 04:29 [From Reglan] Penicillins Allergy Hives Verified 01/18/19 04:29 aspirin AdvReac Stomach Verified 01/18/19 04:29 Upset codeine AdvReac Vomiting Verified 01/18/19 04:29 ibuprofen [From Motrin] AdvReac Stomach Verified 01/18/19 04:29 Upset ranitidine HCl [From Zantac] AdvReac Stomach Verified 01/18/19 04:29 Upset tetracycline [Tetracycline] AdvReac Stomach Verified 01/18/19 04:29 Upset Home Meds: Home Meds Montelukast [Singulair] 10 mg PO DAILY 03/15/13 [History] Topiramate [Topamax] 150 mg PO BEDTIME 03/15/13 [History] busPIRone [Buspar] 30 mg PO BID 03/15/13 [History] Cholecalciferol (Vitamin D3) [Vitamin D] 1,000 cap PO DAILY 09/27/18 [History] Propranolol [Inderal] 20 mg PO BID 09/27/18 [History] Venlafaxine HCl [Venlafaxine HCl ER] 300 mg PO DAILY 09/27/18 [History] Prazosin HCl [Prazosin] 2 mg PO BEDTIME 01/18/19 [History] Past Medical History HEENT History: Reports: Impaired Vision Cardiovascular History: Reports: Hypertension Respiratory History: Reports: Asthma, COPD Gastrointestinal History: Reports: GERD [employer]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 Psychiatric History: Reports: Anxiety, Bipolar, Depression, Panic Attack Endocrine/Metabolic History: Reports: None Hematologic History: Reports: None Immunologic History: Reports: None Oncologic (Cancer) History: Reports: None Dermatologic History: Reports: None - Past Surgical History HEENT Surgical History: Reports: Oral Surgery Cardiovascular Surgical History: Reports: None Respiratory Surgical History: Reports: None GI Surgical History: Reports: Appendectomy, Cholecystectomy, Other (See Below) Other GI Surgeries/Procedures: Lap Lindy. Female Surgical History: Reports: Hysterectomy, Salpingo-Oophorectomy Endocrine Surgical History: Reports: None Neurological Surgical History: Reports: None Musculoskeletal Surgical History: Reports: Arthroscopic Knee, Carpal Tunnel, Knee Replacement, Shoulder Surgery Oncologic Surgical History: Reports: None Social & Family History - Family History Family Medical History: Noncontributory - Caffeine Use Caffeine Use: Reports: None - Living Situation & Occupation Living situation: Reports: ED ROS GENERAL - Review of Systems Review Of Systems: See Below Constitutional: Reports: Malaise, Weakness, Diaphoresis HEENT: Reports: No Symptoms Respiratory: Reports: No Symptoms Cardiovascular: Reports: No Symptoms Endocrine: Reports: No Symptoms GI/Abdominal: Reports: Abdominal Pain, Diarrhea, Decreased Appetite, Nausea : Reports: No Symptoms Musculoskeletal: Reports: No Symptoms Skin: Reports: No Symptoms Neurological: Reports: No Symptoms Psychiatric: Reports: Anxiety Hematologic/Lymphatic: Reports: No Symptoms Immunologic: Reports: No Symptoms ED EXAM, GI/ABD - Physical Exam Exam: See Below Exam Limited By: No Limitations General Appearance: Alert, WD/WN, Anxious, Thin Eyes: Bilateral: Normal Appearance, EOMI Ears: Normal External Exam Nose: Normal Inspection Throat/Mouth: Normal Inspection, Normal Oropharynx, No Airway Compromise Head: Normocephalic Neck: Normal Inspection, Supple, Non-Tender Respiratory/Chest: Lungs Clear, Chest Non-Tender Cardiovascular: Regular Rate, Rhythm, No Edema, No Murmur GI/Abdominal Exam: Normal Bowel Sounds, No Organomegaly, No Distention, No Mass, Tender (LUQ and epigastrium) (Female) Exam: Deferred Rectal (Female) Exam: Deferred Back Exam: Normal Inspection Extremities: Normal Inspection Neurological: Alert, Oriented, CN II-XII Intact, Normal Cognition, No Motor/Sensory Deficits Psychiatric: Normal Affect, Anxious Skin Exam: Warm, Dry, Intact, Normal Color, No Rash Lymphatic: No Adenopathy Course - Vital Signs Text/Narrative:: Following assessment, I ordered some addn labs including UA: pending, CRP 13.8, lipase 431 U; a subsequent Abd Pelvic CT w contrast noted extensive colitis involving the ascending, transverse, and descending colon; no perforation or free air; case discussed with hospitalist, and she will be admitted. Last Recorded V/S: Last Vital Signs Temp 36.2 C 02/29/20 16:00 Pulse 80 02/29/20 16:00 Resp 17 02/29/20 16:00 BP 126/76 02/29/20 16:00 Pulse Ox 98 02/29/20 16:00 - Orders/Labs/Meds Orders: Active Orders 24 hr Category Date Time Status UA W/MICROSCOPIC [URIN] Stat Lab 02/29/20 13:42 Ordered Sodium Chloride 0.9% [Normal Saline] 1,000 ml Med 02/29/20 13:45 Active IV ASDIRECTED Sodium Chloride 0.9% [Saline Flush] Med 02/29/20 13:42 Active 10 ml FLUSH ASDIRECTED PRN Peripheral IV Insertion Adult [OM.PC] Routine Oth 02/29/20 13:42 Ordered Medication Orders Sodium Chloride (Normal Saline) 1,000 mls @ 500 mls/hr IV ASDIRECTED LORI Stop: 03/01/20 15:44 Last Admin: 02/29/20 16:00 Dose: 500 mls/hr Documented by: Infusion: 02/29/20 16:00 Dose: 500 mls/hr Documented by: Admin: 02/29/20 14:00 Dose: 500 mls/hr Documented by: JUSTIN Sodium Chloride (Saline Flush) 10 ml FLUSH ASDIRECTED PRN PRN Reason: Keep Vein Open Last Admin: 02/29/20 14:01 Dose: 10 ml Documented by: JUSTIN Labs: Laboratory Tests 02/29/20 02/29/20 Range/Units 13:55 13:55 Lactic Acid 0.8 (0.4-2.0) mmol/L C-Reactive Protein 13.8 H* (0.5-0.9) mg/dL Lipase 431 H (73-393) U/L Ethyl Alcohol < 0.03 (<0.03) % Meds: Medications Generic Name Dose Route Start Last Admin Trade Name Freq PRN Reason Stop Dose Admin Sodium Chloride 1,000 mls @ 500 mls/hr 02/29/20 13:45 02/29/20 16:00 Normal Saline IV 03/01/20 15:44 500 mls/hr ASDIRECTED LORI Administration Sodium Chloride 10 ml 02/29/20 13:42 02/29/20 14:01 Saline Flush FLUSH 10 ml ASDIRECTED PRN Administration Keep Vein Open Discontinued Medications Generic Name Dose Route Start Last Admin Trade Name Freq PRN Reason Stop Dose Admin Diatrizoate Meglum/Diatrizoate Sod 30 ml 02/29/20 14:56 02/29/20 16:41 Gastrografin 37% PO 02/29/20 14:57 30 ml . DIRECTED ONE Administration Iopamidol 100 ml 02/29/20 14:56 02/29/20 16:41 Isovue-370 (76%) IV 02/29/20 14:57 70 ml . DIRECTED ONE Administration Lorazepam 1 mg 02/29/20 13:42 02/29/20 13:55 Ativan IVPUSH 02/29/20 13:43 1 mg ONETIME ONE Administration Pantoprazole Sodium 40 mg 02/29/20 13:54 02/29/20 14:01 Protonix Iv IVPUSH 02/29/20 13:55 40 mg ONETIME ONE Administration Departure - Departure Time of Disposition: 17:30 Disposition: Admitted As Inpatient 66 Condition: Fair Clinical Impression: Colitis - Discharge Information *PRESCRIPTION DRUG MONITORING PROGRAM REVIEWED*: Not Applicable *COPY OF PRESCRIPTION DRUG MONITORING REPORT IN PATIENT SARTHAK: Not Applicable Forms: ED Department Discharge Sepsis Event Note (ED) - Evaluation Sepsis Screening Result: No Definite Risk - Focused Exam Vital Signs: Vital Signs Temp Pulse Resp BP Pulse Ox 02/29/20 16:00 36.2 C 80 17 126/76 98 02/29/20 13:20 35.9 C L 75 17 125/81 98 - Problem List & Annotations (1) Colitis SNOMED Code(s): 66933293 Code(s): K52.9 - NONINFECTIVE GASTROENTERITIS AND COLITIS, UNSPECIFIED Status: Acute Current Visit: Yes Annotation/Comment:: Admit, bowel rest, further investigation and managment (2) Anxiety SNOMED Code(s): 93174607 Code(s): F41.9 - ANXIETY DISORDER, UNSPECIFIED Status: Chronic Current Visit: No Annotation/Comment:: Lolis was administered Ativan 1 mg IM, and returned home following a period of observation. No change in psychotropic meds. Lolis was administered Ativan 1 mg for anxiety, in the absence of maintenance meds today, with good result. - Problem List Review Problem List Initiated/Reviewed/Updated: Yes - My Orders Last 24 Hours: My Active Orders 02/29/20 13:42 UA W/MICROSCOPIC [URIN] Stat Sodium Chloride 0.9% [Saline Flush] 10 ml FLUSH ASDIRECTED PRN Peripheral IV Insertion Adult [OM.PC] Routine 02/29/20 13:45 Sodium Chloride 0.9% [Normal Saline] 1,000 ml IV ASDIRECTED - Assessment/Plan Last 24 Hours: My Active Orders 02/29/20 13:42 UA W/MICROSCOPIC [URIN] Stat Sodium Chloride 0.9% [Saline Flush] 10 ml FLUSH ASDIRECTED PRN Peripheral IV Insertion Adult [OM.PC] Routine 02/29/20 13:45 Sodium Chloride 0.9% [Normal Saline] 1,000 ml IV ASDIRECTED Plan: Follow up per PCP after discharge.
[2020-02-29] MEDS ORDERED: Pantoprazole 40 MG Vial IVPUSH ONE (13:54)
[2020-02-29] MEDS: Sodium Chloride 0.9% 1,000 ML IV SCH ×3 (14:00→18:51)
[2020-02-29] MEDS: Sodium Chloride 0.9% 10 ML Syringe FLUSH PRN (14:01)
[2020-02-29] MEDS ORDERED: Iopamidol 755 Mg/ML 100 ML Bottle IV ONE (14:56)
[2020-02-29] MEDS ORDERED: Diatrizoate Meglumine/Diatrizoate Sodium 37% 30 ML Bottle PO ONE (14:56)
--- NOTE | 2020-02-29 17:25 | CT ---
INDICATION: Upper abdominal pain times three days, diarrhea, elevated lipase. CT OF THE ABDOMEN AND PELVIS WITH CONTRAST AND DELAY: Spiral 3.75 mm axial sections were obtained through the abdomen and pelvis with oral and IV contrast (70 mL Isovue-370 at 2 mL/second) with delayed examination also obtained to better visualize the more distal colon also with sagittal and coronal reconstructions, 02/29/20, and compared with 08/14/18. Total exam DLP was 160.80 mGy-cm. A linear atelectatic strand is suggested versus minimal tiny fibrotic change at the left lower lobe with no definite active infiltrate or effusion identified. The heart is normal in size. No pericardial effusion was seen. The liver had a normal appearance except for evidence of absence of the gallbladder with slightly prominent ducts most likely on that basis. The pancreas had an appearance suggesting fatty replacement in the area of the head of the pancreas which was present previously. The adrenal glands and right kidney appeared normal with delayed studies showing the entire ureter filling on the right with no filling defects and with flow into the urinary bladder. 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 No significant excretion is seen from the left kidney. No retroperitoneal mass was identified. There are clips compatible with lap Lindy surgery. The appendix is not definitely visualized at this time compatible with appendectomy. The uterus is now absent and compatible with hysterectomy. Thickening of the wall of the colon is noted to a minimal degree in the ascending colon becoming more prominent in the transverse colon and most severe in the descending and sigmoid areas. Findings are compatible with a significant degree of colitis involving the entire colon but as mentioned above, most severe distally. There are a few diverticula in the sigmoid colon, not necessarily related to this process. Urinary bladder appeared normal. Contrast does eventually flow into the distal colon with lumen noted to be fairly narrowed due to the thickening of the wall. IMPRESSION: 1. Colitis, etiology indeterminate. Ischemic felt to be less likely than ulcerative colitis or infectious colitis - correlate clinically and with lab values. No abscess formation or definite peritonitis is identified. 2. Fatty replacement of the head of the pancreas. 3. 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 4. Cholecystectomy. 5. Appendectomy. 6. Post-lap Lindy surgery. 7. Post-hysterectomy. Report was called to [facility] at [address] [facility]
[2020-02-29] MEDS ORDERED: Ondansetron 4 MG Tab.DIS PO PRN (17:57)
--- NOTE | 2020-02-29 18:23 | PCM.HP.2 ---
H&P History of Present Illness - General Date of Service: 02/29/20 Admit Problem/Dx: Admission Diagnosis/Problem Admission Diagnosis/Problem Colitis Source of Information: Patient, EMS Notes Reviewed - History of Present Illness Initial Comments - Free Text/Narative: Lolis is 54 yr old female who presented to clinic today for 4 day history of abdominal pain, diarrhea, nausea, muscle aches, fevers(did not take her temp), sweats, fatigue, weakness. She cannot throw up since having her lap Ruben for reflux. She was trying electrolytes, some other OTC meds at home but diarrhea persisted. She had antibiotics for her jaw around Jan 24. Labs in the clinic were: WBC 8.7, Hgb 13.7, platelets, 166. Sodium 141, Potassium 3.6, Chloride 110, CO2 21, BUN 13, Cr 1.11, Glucose 103, Calcium 9.0, total protein 6.3, Albumin 3.8, Total bilirubin 0.4, Alkaline phosphatase 249, AST 77, ALT 176. She was sent over to ER for further workup: Lipase 431, CRP 13.8, Lactic acid 0.8. CT abdomen/pelvis showed extensive colitis. adbomen Pain Score (Numeric/FACES): 7 - Related Data Allergies/Adverse Reactions: Allergies Allergy/AdvReac Type Severity Reaction Status Date / Time metoclopramide HCl Allergy Itching Verified 02/29/20 18:12 [From Reglan] Penicillins Allergy Hives Verified 02/29/20 18:12 aspirin AdvReac Stomach Verified 02/29/20 18:12 Upset codeine AdvReac Vomiting Verified 02/29/20 18:12 ibuprofen [From Motrin] AdvReac Stomach Verified 02/29/20 18:12 Upset ranitidine HCl [From Zantac] AdvReac Stomach Verified 02/29/20 18:12 Upset tetracycline [Tetracycline] AdvReac Stomach Verified 02/29/20 18:12 Upset Home Medications: Home Meds Montelukast [Singulair] 10 mg PO DAILY 03/15/13 [History] Topiramate [Topamax] 150 mg PO BEDTIME 03/15/13 [History] busPIRone [Buspar] 30 mg PO BID 03/15/13 [History] Cholecalciferol (Vitamin D3) [Vitamin D] 1,000 cap PO DAILY 09/27/18 [History] Propranolol [Inderal] 20 mg PO BID 09/27/18 [History] Venlafaxine HCl [Venlafaxine HCl ER] 150 mg PO DAILY 09/27/18 [History] Prazosin HCl [Prazosin] 2 mg PO BEDTIME 01/18/19 [History] Past Medical History HEENT History: Reports: Impaired Vision Cardiovascular History: Reports: Hypertension Respiratory History: Reports: Asthma, COPD Gastrointestinal History: Reports: GERD [employer]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 Psychiatric History: Reports: Anxiety, Bipolar, Depression, Panic Attack Endocrine/Metabolic History: Reports: None Hematologic History: Reports: None Immunologic History: Reports: None Oncologic (Cancer) History: Reports: None Dermatologic History: Reports: None - Past Surgical History HEENT Surgical History: Reports: Oral Surgery Cardiovascular Surgical History: Reports: None Respiratory Surgical History: Reports: None GI Surgical History: Reports: Appendectomy, Cholecystectomy, Other (See Below) Other GI Surgeries/Procedures: Lap Lindy. Female Surgical History: Reports: Hysterectomy, Salpingo-Oophorectomy Endocrine Surgical History: Reports: None Neurological Surgical History: Reports: None Musculoskeletal Surgical History: Reports: Arthroscopic Knee, Carpal Tunnel, Knee Replacement, Shoulder Surgery Oncologic Surgical History: Reports: None Social & Family History - Family History Family Medical History: Noncontributory - Tobacco Use Smoking Status *Q: Never Smoker Second Hand Smoke Exposure: No - Caffeine Use Caffeine Use: Reports: None - Recreational Drug Use Recreational Drug Use: No - Living Situation & Occupation Living situation: Reports: H&P Review of Systems - Review of Systems: Review Of Systems: See Below General: Reports: Fever, Malaise, Weakness, Diaphoresis. Denies: Chills HEENT: Reports: Glasses, Other (jaw pain). Denies: Ear Pain, Eye Pain, Post Nasal Drip, Sinus Congestion, Sore Throat Pulmonary: Reports: No Symptoms Cardiovascular: Reports: No Symptoms Gastrointestinal: Reports: Abdominal Pain, Anorexia, Diarrhea, Nausea. Denies: Constipation, Vomiting Genitourinary: Reports: No Symptoms Musculoskeletal: Reports: Muscle Pain Skin: Reports: No Symptoms Psychiatric: Reports: Depression, Anxiety Neurological: Reports: No Symptoms Hematologic/Lymphatic: Reports: No Symptoms Immunologic: Reports: Other (medications) Exam - Exam Exam: See Below - Vital Signs Vital Signs: Last Vital Signs Temp 97.1 F 02/29/20 16:00 Pulse 80 02/29/20 16:00 Resp 17 02/29/20 16:00 BP 126/76 02/29/20 16:00 Pulse Ox 98 02/29/20 16:00 Weight: 115 lb - Exam General: Alert, Oriented, Cooperative, Mild Distress (anxious) HEENT: PERRLA, Conjunctiva Clear, EOMI, Hearing Intact, Mucosa Moist & [place], Glasses Lungs: Clear to Auscultation, Normal Respiratory Effort, Crackles (left base) Cardiovascular: Regular Rate, Regular Rhythm GI/Abdominal Exam: Soft, No Distention, Guarding, Tender, Abnormal Bowel Sounds (hyperactive). No: Rigid, Rebound (Female) Exam: Deferred Rectal (Female) Exam: Deferred Back Exam: No: CVA Tenderness (R), CVA Tenderness (L) Extremities: No Pedal Edema, Normal Capillary Refill Peripheral Pulses: 2+: Radial (L), Radial (R), Posterior Tibial (L), Posterior Tibial (R), Dorsalis Pedis (L), Dorsalis Pedis (R) Skin: Warm, Dry, Intact Psychiatric: Anxious, Agitated - Patient Data Lab Results Last 24 hrs: Laboratory Results - last 24 hr 02/29/20 02/29/20 02/29/20 Range/Units 13:55 13:55 17:00 Lactic Acid 0.8 (0.4-2.0) mmol/L C-Reactive Protein 13.8 H* (0.5-0.9) mg/dL Lipase 431 H (73-393) U/L Urine Color Yellow (YELLOW) Urine Appearance Clear (CLEAR) Urine pH 5.0 (5.0-6.5) Ur Specific [place] 1.005 L (1.010-1.025) Urine Protein Negative (NEGATIVE) mg/dL Urine Glucose (UA) Normal (NORMAL) mg/dL Urine Ketones 15 H (NEGATIVE) mg/dL Urine Occult Blood Negative (NEGATIVE) Urine Nitrite Negative (NEGATIVE) Urine Bilirubin Negative (NEGATIVE) Urine Urobilinogen Normal (NEGATIVE) mg/dL Ur Leukocyte Esterase Negative (NEGATIVE) Urine RBC 0-5 (0-5) Urine WBC 0-5 (0-5) Ur Squamous Epith Cells Occasional (NS,R,O) Urine Bacteria Rare H (NS) Ethyl Alcohol < 0.03 (<0.03) % Labs in the clinic were: WBC 8.7, Hgb 13.7, platelets, 166. Sodium 141, Potassium 3.6, Chloride 110, CO2 21, BUN 13, Cr 1.11, Glucose 103, Calcium 9.0, total protein 6.3, Albumin 3.8, Total bilirubin 0.4, Alkaline phosphatase 249, AST 77, ALT 176. CT abdomen/pelvis showed extensive colitis. Jeremy Results Last 24 hrs: Microbiology 02/29/20 13:44 Stool Occult Blood (JEREMY) - Final Stool / Feces NEGATIVE OCCULT BLOOD REFERENCE RANGE: NEGATIVE Sepsis Event Note - Evaluation Sepsis Screening Result: No Definite Risk - Focused Exam Vital Signs: Vital Signs Temp Pulse Resp BP Pulse Ox 02/29/20 16:00 97.1 F 80 17 126/76 98 02/29/20 13:20 96.6 F L 75 17 125/81 98 *Q Meaningful Use (ADM) - VTE Risk Assess *Q Each Risk Factor Represents 1 Point: Age 41 - 59 years Total Score 1 Point Risk Factors: 1 Each Risk Factor Represents 2 Points: None Total Score 2 Point Risk Factors: 0 Each Risk Factor Represents 3 Points: None Total Score 3 Point Risk Factors: 0 Each Risk Factor Represents 5 Points: None Total Score 5 Point Risk Factors: 0 Venous Thromboembolism Risk Factor Score *Q: 1 - Problem List (1) Colitis SNOMED Code(s): 39546072 ICD Code: K52.9 - NONINFECTIVE GASTROENTERITIS AND COLITIS, UNSPECIFIED Status: Acute Current Visit: Yes Problem Details: Admit, bowel rest, further investigation and managment (2) Anxiety SNOMED Code(s): 35563215 ICD Code: F41.9 - ANXIETY DISORDER, UNSPECIFIED Status: Chronic Current Visit: No (3) Diverticulosis of colon SNOMED Code(s): 648212366, 941158369 ICD Code: K57.30 - DVRTCLOS OF LG INT W/O PERFORATION OR ABSCESS W/O BLEEDING Status: Chronic Current Visit: No (4) Migraine SNOMED Code(s): 84090695 ICD Code: G43.909 - MIGRAINE, UNSP, NOT INTRACTABLE, WITHOUT STATUS MIGRAINOSUS Status: Chronic Priority: Medium Current Visit: No Onset Date: 08/03/14 (5) Panic disorder SNOMED Code(s): 840614397 ICD Code: F41.0 - PANIC DISORDER [EPISODIC PAROXYSMAL ANXIETY] Status: Chronic Current Visit: No (6) Moderate recurrent major depression SNOMED Code(s): 437822126 ICD Code: F33.1 - MAJOR DEPRESSIVE DISORDER, RECURRENT, MODERATE Status: Chronic Current Visit: No Problem Details: Reported TBI with co morbid major depression w anxiety, and will continue management with PCP and mental health professionals. (7) Status post Lindy fundoplication SNOMED Code(s): 987962118 ICD Code: Z98.890 - OTHER SPECIFIED POSTPROCEDURAL STATES Status: Chronic Current Visit: Yes (8) PTSD (post-traumatic stress disorder) SNOMED Code(s): 11993590 ICD Code: F43.10 - POST-TRAUMATIC STRESS DISORDER, UNSPECIFIED Status: Chronic Current Visit: Yes Problem List Initiated/Reviewed/Updated: Yes Orders Last 24hrs: Active Orders 24 hr Category Date Time Status Patient Status [ADT] Routine ADT 02/29/20 17:56 Active Antiembolic Devices [RC] .Routine Care 02/29/20 17:57 Active Oxygen Therapy [RC] PRN Care 02/29/20 17:56 Active Up ad Lynn [RC] ASDIRECTED Care 02/29/20 17:52 Active VTE/DVT Education [RC] Per Unit Routine Care 02/29/20 17:56 Active Vital Signs [RC] Q4H Care 02/29/20 17:56 Active Nothing per Oral Now Diet [DIET] Diet 02/29/20 Dinner Active CBC WITH AUTO DIFF [HEME] Routine Lab 03/01/20 06:00 Ordered COMPREHENSIVE METABOLIC PN,CMP [CHEM] Routine Lab 03/01/20 06:00 Ordered Acetaminophen [TylenoL] Med 02/29/20 17:52 Active 650 mg PO Q4H PRN Enoxaparin [Lovenox] Med 02/29/20 18:00 Pending 40 mg SUBCUT Q24H Ketorolac [Toradol] Med 02/29/20 17:57 Active 30 mg IVPUSH Q6H PRN Montelukast [Singulair] Med 03/01/20 09:00 Ordered 10 mg PO DAILY Ondansetron [Zofran ODT] Med 02/29/20 17:57 Active 4 mg PO Q4H PRN Pantoprazole [ProTONIX IV] Med 03/01/20 06:00 Active 40 mg IVPUSH Q12H Prazosin HCl [Prazosin] Med 02/29/20 21:00 Ordered 2 mg PO BEDTIME Propranolol [Inderal] Med 02/29/20 21:00 Ordered 20 mg PO BID Sodium Chloride 0.9% [Normal Saline] 1,000 ml Med 02/29/20 13:45 Active IV ASDIRECTED Sodium Chloride 0.9% [Saline Flush] Med 02/29/20 13:42 Active 10 ml FLUSH ASDIRECTED PRN Topiramate [Topamax] Med 02/29/20 21:00 Ordered 150 mg PO BEDTIME Venlafaxine HCl [Venlafaxine HCl ER] Med 03/01/20 09:00 Ordered 300 mg PO DAILY busPIRone [Buspar] Med 02/29/20 21:00 Ordered 30 mg PO BID Antiembolic Hose [OM.PC] Per Unit Routine Oth 02/29/20 17:57 Ordered Peripheral IV Insertion Adult [OM.PC] Routine Oth 02/29/20 13:42 Ordered Resuscitation Status Routine Resus Stat 02/29/20 17:52 Ordered Medication Orders Acetaminophen (Tylenol) 650 mg PO Q4H PRN PRN Reason: Pain (Mild 1-3)/fever Buspirone HCl (Buspar) 30 mg PO BID LORI Enoxaparin Sodium (Lovenox) 40 mg SUBCUT Q24H LORI Sodium Chloride (Normal Saline) 1,000 mls @ 500 mls/hr IV ASDIRECTED LORI Stop: 03/01/20 15:44 Last Admin: 02/29/20 16:00 Dose: 500 mls/hr Documented by: Infusion: 02/29/20 16:00 Dose: 500 mls/hr Documented by: Admin: 02/29/20 14:00 Dose: 500 mls/hr Documented by: JUSTIN Ketorolac Tromethamine (Toradol) 30 mg IVPUSH Q6H PRN PRN Reason: Pain (moderate 4-6) Montelukast Sodium (Singulair) 10 mg PO DAILY LORI Non-Formulary Medication (Prazosin Hcl [Prazosin]) 2 mg PO BEDTIME LORI Non-Formulary Medication (Topiramate [Topamax]) 150 mg PO BEDTIME LORI Non-Formulary Medication (Venlafaxine Hcl [Venlafaxine Hcl Er]) 300 mg PO DAILY LORI Ondansetron HCl (Zofran Odt) 4 mg PO Q4H PRN PRN Reason: nausea, able to take PO Pantoprazole Sodium (Protonix Iv) 40 mg IVPUSH Q12H LORI Propranolol HCl (Inderal) 20 mg PO BID LORI Sodium Chloride (Saline Flush) 10 ml FLUSH ASDIRECTED PRN PRN Reason: Keep Vein Open Last Admin: 02/29/20 14:01 Dose: 10 ml Documented by: JUSTIN Assessment/Plan Comment:: 1. Admit to inpatient for extensive colitis. 2. Bowel rest, C-diff and stool culture. 3. NPO except for medications. NS at 125 ml/hr once NS at 500 ml/hr that was started in ER are completed. 4. Continue home medications. 5. DVT prophylaxis: TEDs BLE, Lovenox 40 mg SQ daily. 6. FULL CODE. 7. Adjust treatments as necessary. - Mortality Measure Prognosis:: Good
[2020-02-29] MEDS: Enoxaparin 40 MG/0.4 ML Syringe SUBCUT SCH (18:51)
[2020-02-29] MEDS: Ketorolac 30 MG/ML SDV IVPUSH PRN (20:53)
[2020-02-29] MEDS: Prazosin 1 MG Cap PO SCH (20:53)
[2020-02-29] MEDS: Topiramate 50 MG Tab PO SCH (20:54)
[2020-02-29] MEDS: Acetaminophen 325 MG Tab PO PRN (20:56)
[2020-02-29] MEDS: Propranolol 20 MG Tab PO SCH (20:56)
[2020-02-29] MEDS ORDERED: busPIRone 10 MG Tab PO SCH ×2 (21:00)
[2020-02-29] MEDS ORDERED: Propranolol 10 MG Tab PO SCH (21:00)
[2020-02-29] MEDS ORDERED: busPIRone 5 MG Tab PO SCH (21:00)
[2020-02-29] MEDS ORDERED: Propranolol 20 MG Tab PO SCH (21:00)
[2020-03-01] MEDS: Sodium Chloride 0.9% 1,000 ML IV SCH (02:51)
[2020-03-01] MEDS: Pantoprazole 40 MG Vial IVPUSH SCH ×2 (06:07→17:05)
[2020-03-01] MEDS: busPIRone 15 MG Tab PO SCH ×2 (08:25→12:25)
[2020-03-01] MEDS: Vancomycin 125 MG Cap PO SCH ×4 (08:26→20:35)
[2020-03-01] MEDS: Venlafaxine 150 MG Cap.ER PO SCH (08:26)
[2020-03-01] MEDS: Potassium Chloride 10 MEQ Tab.ER PO SCH ×3 (08:26→20:34)
[2020-03-01] MEDS: Montelukast 10 MG Tab PO SCH (08:26)
[2020-03-01] MEDS: Propranolol 20 MG Tab PO SCH ×2 (08:28→20:34)
[2020-03-01] MEDS ORDERED: Lactated Ringers 1,000 ML IV ONE (09:17)
[2020-03-01] MEDS ORDERED: Magnesium Chloride 64 MG Tab.ER PO SCH (09:30)
[2020-03-01] MEDS: Ketorolac 30 MG/ML SDV IVPUSH PRN ×2 (09:45→20:56)
[2020-03-01] MEDS: Acetaminophen 325 MG Tab PO PRN (09:46)
--- NOTE | 2020-03-01 10:26 | PCM.PN ---
- General Info Date of Service: 03/01/20 Subjective Update: Lolis had stool culture and C-difficile testing ordered, C-difficile came back as positive for antigen and toxin. She has tolerated water with medications. She has had 5 bowel movements since admission. Her home medications were restarted on admission and given less stimulating environment in the room. States her blood pressures tend to run low due to her Propranolol for her migraines and Prazosin for her nightmares. 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 She did give permission to speak with her surgeon to inform them of her admission and diagnosis. - Patient Data Vitals - Most Recent: Last Vital Signs Temp 97.7 F 03/01/20 03:00 Pulse 77 03/01/20 03:00 Resp 18 03/01/20 03:00 BP 97/60 03/01/20 03:00 Pulse Ox 98 03/01/20 03:00 Weight - Most Recent: 115 lb 14.4 oz I&O - Last 24 Hours: Intake & Output 02/29/20 03/01/20 03/01/20 22:59 06:59 14:59 Intake Total 2400 952 Balance 2400 952 Lab Results Last 24 Hours: Laboratory Results - last 24 hr 02/29/20 02/29/20 02/29/20 Range/Units 13:55 13:55 17:00 WBC (4.5-12.0) X10-3/uL RBC (3.23-5.20) x10(6)uL Hgb (11.5-15.5) g/dL Hct (30.0-51.3) % MCV (80-96) fL MCH (27.7-33.6) pg MCHC (32.2-35.4) g/dL RDW (11.5-15.5) % Plt Count (125-369) X10(3)uL MPV (7.4-10.4) fL Neut % (Auto) (46-82) % Lymph % (Auto) (13-37) % Wise % (Auto) (4-12) % Eos % (Auto) (1.0-5.0) % Baso % (Auto) (0-2) % Neut # (Auto) (1.6-8.3) # Lymph # (Auto) (0.6-5.0) # Wise # (Auto) (0.0-1.3) # Eos # (Auto) (0.0-0.8) # Baso # (Auto) (0.0-0.2) # Sodium (135-145) mmol/L Potassium (3.5-5.3) mmol/L Chloride (100-110) mmol/L Carbon Dioxide (21-32) mmol/L BUN (7-18) mg/dL Creatinine (0.55-1.02) mg/dL Est Cr Clr Drug Dosing mL/min Estimated GFR (MDRD) (>60) BUN/Creatinine Ratio (9-20) Glucose (80-116) mg/dL Lactic Acid 0.8 (0.4-2.0) mmol/L Calcium (8.6-10.2) mg/dL Magnesium (1.8-2.5) mg/dL Total Bilirubin (0.1-1.3) mg/dL AST (5-25) IU/L ALT (12-36) U/L Alkaline Phosphatase (56-112) IU/L C-Reactive Protein 13.8 H* (0.5-0.9) mg/dL Total Protein (6.0-8.0) g/dL Albumin (3.5-5.2) g/dL Globulin g/dL Albumin/Globulin Ratio Lipase 431 H (73-393) U/L Urine Color Yellow (YELLOW) Urine Appearance Clear (CLEAR) Urine pH 5.0 (5.0-6.5) Ur Specific D Lo 1.005 L (1.010-1.025) Urine Protein Negative (NEGATIVE) mg/dL Urine Glucose (UA) Normal (NORMAL) mg/dL Urine Ketones 15 H (NEGATIVE) mg/dL Urine Occult Blood Negative (NEGATIVE) Urine Nitrite Negative (NEGATIVE) Urine Bilirubin Negative (NEGATIVE) Urine Urobilinogen Normal (NEGATIVE) mg/dL Ur Leukocyte Esterase Negative (NEGATIVE) Urine RBC 0-5 (0-5) Urine WBC 0-5 (0-5) Ur Squamous Epith Cells Occasional (NS,R,O) Urine Bacteria Rare H (NS) Ethyl Alcohol < 0.03 (<0.03) % 09/22/20 09/22/20 09/22/20 Range/Units 06:25 06:25 06:25 WBC 6.2 (4.5-12.0) X10-3/uL RBC 3.73 (3.23-5.20) x10(6)uL Hgb 11.7 (11.5-15.5) g/dL Hct 35.1 (30.0-51.3) % MCV 93.9 (80-96) fL MCH 31.5 (27.7-33.6) pg MCHC 33.5 (32.2-35.4) g/dL RDW 12.1 (11.5-15.5) % Plt Count 172 (125-369) X10(3)uL MPV 6.7 L (7.4-10.4) fL Neut % (Auto) 78.0 (46-82) % Lymph % (Auto) 10.0 L (13-37) % Wise % (Auto) 10.8 (4-12) % Eos % (Auto) 1 (1.0-5.0) % Baso % (Auto) 0 (0-2) % Neut # (Auto) 4.8 (1.6-8.3) # Lymph # (Auto) 0.6 (0.6-5.0) # Wise # (Auto) 0.7 (0.0-1.3) # Eos # (Auto) 0.1 (0.0-0.8) # Baso # (Auto) 0.0 (0.0-0.2) # Sodium 144 (135-145) mmol/L Potassium 3.4 L (3.5-5.3) mmol/L Chloride 112 H D (100-110) mmol/L Carbon Dioxide 21 (21-32) mmol/L BUN 14 (7-18) mg/dL Creatinine 0.9 (0.55-1.02) mg/dL Est Cr Clr Drug Dosing 56.52 mL/min Estimated GFR (MDRD) > 60 (>60) BUN/Creatinine Ratio 15.6 (9-20) Glucose 77 L (80-116) mg/dL Lactic Acid (0.4-2.0) mmol/L Calcium 7.9 L (8.6-10.2) mg/dL Magnesium (1.8-2.5) mg/dL Total Bilirubin 0.4 (0.1-1.3) mg/dL AST 36 H D (5-25) IU/L ALT 107 H D (12-36) U/L Alkaline Phosphatase 177 H (56-112) IU/L C-Reactive Protein (0.5-0.9) mg/dL Total Protein 5.0 L (6.0-8.0) g/dL Albumin 2.4 L (3.5-5.2) g/dL Globulin 2.6 g/dL Albumin/Globulin Ratio 0.9 Lipase 630 H (73-393) U/L Urine Color (YELLOW) Urine Appearance (CLEAR) Urine pH (5.0-6.5) Ur Specific D Lo (1.010-1.025) Urine Protein (NEGATIVE) mg/dL Urine Glucose (UA) (NORMAL) mg/dL Urine Ketones (NEGATIVE) mg/dL Urine Occult Blood (NEGATIVE) Urine Nitrite (NEGATIVE) Urine Bilirubin (NEGATIVE) Urine Urobilinogen (NEGATIVE) mg/dL Ur Leukocyte Esterase (NEGATIVE) Urine RBC (0-5) Urine WBC (0-5) Ur Squamous Epith Cells (NS,R,O) Urine Bacteria (NS) Ethyl Alcohol (<0.03) % 03/01/20 Range/Units 06:25 WBC (4.5-12.0) X10-3/uL RBC (3.23-5.20) x10(6)uL Hgb (11.5-15.5) g/dL Hct (30.0-51.3) % MCV (80-96) fL MCH (27.7-33.6) pg MCHC (32.2-35.4) g/dL RDW (11.5-15.5) % Plt Count (125-369) X10(3)uL MPV (7.4-10.4) fL Neut % (Auto) (46-82) % Lymph % (Auto) (13-37) % Wise % (Auto) (4-12) % Eos % (Auto) (1.0-5.0) % Baso % (Auto) (0-2) % Neut # (Auto) (1.6-8.3) # Lymph # (Auto) (0.6-5.0) # Wise # (Auto) (0.0-1.3) # Eos # (Auto) (0.0-0.8) # Baso # (Auto) (0.0-0.2) # Sodium (135-145) mmol/L Potassium (3.5-5.3) mmol/L Chloride (100-110) mmol/L Carbon Dioxide (21-32) mmol/L BUN (7-18) mg/dL Creatinine (0.55-1.02) mg/dL Est Cr Clr Drug Dosing mL/min Estimated GFR (MDRD) (>60) BUN/Creatinine Ratio (9-20) Glucose (80-116) mg/dL Lactic Acid (0.4-2.0) mmol/L Calcium (8.6-10.2) mg/dL Magnesium 1.6 L (1.8-2.5) mg/dL Total Bilirubin (0.1-1.3) mg/dL AST (5-25) IU/L ALT (12-36) U/L Alkaline Phosphatase (56-112) IU/L C-Reactive Protein (0.5-0.9) mg/dL Total Protein (6.0-8.0) g/dL Albumin (3.5-5.2) g/dL Globulin g/dL Albumin/Globulin Ratio Lipase (73-393) U/L Urine Color (YELLOW) Urine Appearance (CLEAR) Urine pH (5.0-6.5) Ur Specific D Lo (1.010-1.025) Urine Protein (NEGATIVE) mg/dL Urine Glucose (UA) (NORMAL) mg/dL Urine Ketones (NEGATIVE) mg/dL Urine Occult Blood (NEGATIVE) Urine Nitrite (NEGATIVE) Urine Bilirubin (NEGATIVE) Urine Urobilinogen (NEGATIVE) mg/dL Ur Leukocyte Esterase (NEGATIVE) Urine RBC (0-5) Urine WBC (0-5) Ur Squamous Epith Cells (NS,R,O) Urine Bacteria (NS) Ethyl Alcohol (<0.03) % Jeremy Results Last 24 Hours: Microbiology 03/01/20 00:20 C. difficile Antigen & Toxins A,B - Final Stool / Feces 02/29/20 13:44 Stool Occult Blood (JEREMY) - Final Stool / Feces NEGATIVE OCCULT BLOOD REFERENCE RANGE: NEGATIVE Med Orders - Current: Current Medications Acetaminophen (Tylenol) 650 mg PO Q4H PRN PRN Reason: Pain (Mild 1-3)/fever Last Admin: 03/01/20 09:46 Dose: 650 mg Documented by: Buspirone HCl (Buspar) 30 mg PO BID@0800,1200 [facility] Last Admin: 03/01/20 08:25 Dose: 30 mg Documented by: Enoxaparin Sodium (Lovenox) 40 mg SUBCUT Q24H [facility] Last Admin: 02/29/20 18:51 Dose: 40 mg Documented by: Lactated Ringer's (Ringers, Lactated) 1,000 mls @ 125 mls/hr IV ASDIRECTED [facility] Lactated Ringer's (Ringers, Lactated) 1,000 mls @ 500 mls/hr IV BOLUS ONE Stop: 03/01/20 11:16 Last Admin: 03/01/20 09:46 Dose: 500 mls/hr Documented by: Ketorolac Tromethamine (Toradol) 30 mg IVPUSH Q6H PRN PRN Reason: Pain (moderate 4-6) Last Admin: 03/01/20 09:45 Dose: 30 mg Documented by: Magnesium Chloride (Mag-64) 64 mg PO DAILY [facility] Last Admin: 03/01/20 10:17 Dose: 64 mg Documented by: Montelukast Sodium (Singulair) 10 mg PO DAILY [facility] Last Admin: 03/01/20 08:26 Dose: 10 mg Documented by: Ondansetron HCl (Zofran Odt) 4 mg PO Q4H PRN PRN Reason: nausea, able to take PO Last Admin: 03/01/20 10:17 Dose: 4 mg Documented by: Pantoprazole Sodium (Protonix Iv) 40 mg IVPUSH Q12H [facility] Last Admin: 03/01/20 06:07 Dose: 40 mg Documented by: Potassium Chloride (Klor-Con 10) 10 meq PO TID [facility] Last Admin: 03/01/20 08:26 Dose: 10 meq Documented by: Prazosin HCl (Minpress) 2 mg PO BEDTIME [facility] Last Admin: 02/29/20 20:53 Dose: 2 mg Documented by: Propranolol HCl (Inderal) 20 mg PO BID [facility] Last Admin: 03/01/20 08:28 Dose: 20 mg Documented by: Sodium Chloride (Saline Flush) 10 ml FLUSH ASDIRECTED PRN PRN Reason: Keep Vein Open Last Admin: 02/29/20 14:01 Dose: 10 ml Documented by: Topiramate (Topamax) 150 mg PO BEDTIME [facility] Last Admin: 02/29/20 20:54 Dose: 150 mg Documented by: Vancomycin HCl (Vancocin 125 Mg Capsule) 125 mg PO QID [facility] Last Admin: 03/01/20 08:26 Dose: 125 mg Documented by: Venlafaxine HCl (Effexor Xr) 300 mg PO DAILY [facility] Last Admin: 03/01/20 08:26 Dose: 300 mg Documented by: Discontinued Medications Buspirone HCl (Buspar) 30 mg PO BID [facility] Buspirone HCl (Buspar) 30 mg PO BID [facility] Buspirone HCl (Buspar) 30 mg PO BID [facility] Last Admin: 02/29/20 20:55 Dose: 30 mg Documented by: Diatrizoate Meglum/Diatrizoate Sod (Gastrografin 37%) 30 ml PO . DIRECTED ONE Stop: 02/29/20 14:57 Last Admin: 02/29/20 16:41 Dose: 30 ml Documented by: Sodium Chloride (Normal Saline) 1,000 mls @ 500 mls/hr IV ASDIRECTED [facility] Stop: 03/01/20 15:44 Last Admin: 02/29/20 16:00 Dose: 500 mls/hr Documented by: Sodium Chloride (Normal Saline) 1,000 mls @ 125 mls/hr IV ASDIRECTED [facility] Last Admin: 03/01/20 02:51 Dose: 125 mls/hr Documented by: Iopamidol (Isovue-370 (76%)) 100 ml IV . DIRECTED ONE Stop: 02/29/20 14:57 Last Admin: 02/29/20 16:41 Dose: 70 ml Documented by: Lorazepam (Ativan) 1 mg IVPUSH ONETIME ONE Stop: 02/29/20 13:43 Last Admin: 02/29/20 13:55 Dose: 1 mg Documented by: Pantoprazole Sodium (Protonix Iv) 40 mg IVPUSH ONETIME ONE Stop: 02/29/20 13:55 Last Admin: 02/29/20 14:01 Dose: 40 mg Documented by: Propranolol HCl (Inderal) 20 mg PO BID [facility] Propranolol HCl (Inderal) 20 mg PO BID [facility] - Exam General: Alert, Oriented, Cooperative, Mild Distress Lungs: Clear to Auscultation, Normal Respiratory Effort Cardiovascular: Regular Rate, Regular Rhythm GI/Abdominal Exam: Soft, No Distention, Guarding, Tender (diffuse), Abnormal Bowel Sounds (hyperactive). No: Rigid Extremities: No Pedal Edema Sepsis Event Note - Evaluation Sepsis Screening Result: No Definite Risk - Focused Exam Vital Signs: Vital Signs Temp Pulse Resp BP Pulse Ox 03/01/20 03:00 97.7 F 77 18 97/60 98 03/01/20 00:22 97.7 F 75 18 90/56 L 99 - Problem List & Annotations (1) C. difficile colitis SNOMED Code(s): 310799280 Code(s): A04.72 - ENTEROCOLITIS D/T CLOSTRIDIUM DIFFICILE, NOT SPCF RECUR Status: Acute Current Visit: Yes Annotation/Comment:: Vancomycin oral capsules 125 mg qid x 10 days. Advance diet to clears. LR 500 ml bolus this morning for low systolic blood pressure 80s then at 125 ml/hr. Once tolerating diet, and not requiring IV fluids will be able to discharge to home. (2) Hypokalemia due to excessive gastrointestinal loss of potassium SNOMED Code(s): 97429381 Code(s): E87.6 - HYPOKALEMIA Status: Acute Current Visit: Yes (3) Hypomagnesemia SNOMED Code(s): 223800535 Code(s): E83.42 - HYPOMAGNESEMIA Status: Acute Current Visit: Yes (4) Anxiety SNOMED Code(s): 70554213 Code(s): F41.9 - ANXIETY DISORDER, UNSPECIFIED Status: Chronic Current Visit: No (5) Diverticulosis of colon SNOMED Code(s): 800544383, 226844051 Code(s): K57.30 - DVRTCLOS OF LG INT W/O PERFORATION OR ABSCESS W/O BLEEDING Status: Chronic Current Visit: No (6) Migraine SNOMED Code(s): 89314782 Code(s): G43.909 - MIGRAINE, UNSP, NOT INTRACTABLE, WITHOUT STATUS MIGRAINOSUS Status: Chronic Priority: Medium Current Visit: No Onset Date: 01/10/14 (7) Panic disorder SNOMED Code(s): 770282690 Code(s): F41.0 - PANIC DISORDER [EPISODIC PAROXYSMAL ANXIETY] Status: Chronic Current Visit: No (8) Moderate recurrent major depression SNOMED Code(s): 704654685 Code(s): F33.1 - MAJOR DEPRESSIVE DISORDER, RECURRENT, MODERATE Status: Chronic Current Visit: No Annotation/Comment:: Reported TBI with co morbid major depression w anxiety, and will continue management with PCP and mental health professionals. (9) Status post Lindy fundoplication SNOMED Code(s): 818336081 Code(s): Z98.890 - OTHER SPECIFIED POSTPROCEDURAL STATES Status: Chronic Current Visit: Yes (10) PTSD (post-traumatic stress disorder) SNOMED Code(s): 40352683 Code(s): F43.10 - POST-TRAUMATIC STRESS DISORDER, UNSPECIFIED Status: Chronic Current Visit: Yes (11) Colitis SNOMED Code(s): 99674991 Code(s): K52.9 - NONINFECTIVE GASTROENTERITIS AND COLITIS, UNSPECIFIED Status: Ruled-out Current Visit: Yes Annotation/Comment:: ruled out noninfectious cause. - Problem List Review Problem List Initiated/Reviewed/Updated: Yes - My Orders Last 24 Hours: My Active Orders 02/29/20 17:52 Up ad Lynn [RC] ASDIRECTED Acetaminophen [TylenoL] 650 mg PO Q4H PRN Resuscitation Status Routine 02/29/20 17:56 Patient Status [ADT] Routine Oxygen Therapy [RC] PRN Vital Signs [RC] 00,04,08,12,16,20 02/29/20 17:57 Antiembolic Devices [RC] .Routine Ketorolac [Toradol] 30 mg IVPUSH Q6H PRN Ondansetron [Zofran ODT] 4 mg PO Q4H PRN Antiembolic Hose [OM.PC] Per Unit Routine 02/29/20 18:00 Enoxaparin [Lovenox] 40 mg SUBCUT Q24H 02/29/20 21:00 Prazosin [Minpress] 2 mg PO BEDTIME Propranolol [Inderal] 20 mg PO BID Topiramate [Topamax] 150 mg PO BEDTIME 03/01/20 00:20 STOOL CULTURE Routine 03/01/20 06:00 Pantoprazole [ProTONIX IV] 40 mg IVPUSH Q12H 03/01/20 Breakfast Clear Liquid Diet [DIET] 03/01/20 08:00 busPIRone [Buspar] 30 mg PO BID@0800,1200 03/01/20 08:15 Lactated Ringers [Ringers, Lactated] 1,000 ml IV ASDIRECTED 03/01/20 09:00 Montelukast [Singulair] 10 mg PO DAILY Potassium Chloride [Klor-Con 10] 10 meq PO TID Vancomycin [Vancocin 125 MG Capsule] 125 mg PO QID Venlafaxine [Effexor XR] 300 mg PO DAILY 03/01/20 09:17 Lactated Ringers [Ringers, Lactated] 1,000 ml IV BOLUS 03/01/20 09:30 Magnesium Chloride [Mag-64] 64 mg PO DAILY 03/02/20 06:00 BASIC METABOLIC PANEL,BMP [CHEM] Routine - Plan Plan:: 1. C diff colitis: Vancomycin 125 mg qid x 10 days. 2. Hypokalemia/hypomagnesemia: KCL 10 mEQ tid and Magnesium 64 mg daily. Repeat labs tomorrow. 3. LR 500 ml bolus then at 125 ml/hr. 4. Continue home medications for migraine, anxiety, depression, PTSD. 5.Adjust treatments as necessary.
[2020-03-01] MEDS: Lactated Ringers 1,000 ML IV SCH ×2 (12:21→20:30)
[2020-03-01] MEDS: Enoxaparin 40 MG/0.4 ML Syringe SUBCUT SCH (17:04)
[2020-03-01] MEDS: Prazosin 1 MG Cap PO SCH (20:35)
[2020-03-01] MEDS: Topiramate 50 MG Tab PO SCH (20:35)
[2020-03-01] MEDS: Sodium Chloride 0.9% 10 ML Syringe FLUSH PRN (20:56)
[2020-03-02] MEDS: Lactated Ringers 1,000 ML IV SCH ×2 (04:38→14:02)
[2020-03-02] MEDS: Pantoprazole 40 MG Vial IVPUSH SCH ×2 (06:00→18:06)
[2020-03-02] MEDS: Venlafaxine 150 MG Cap.ER PO SCH (08:27)
[2020-03-02] MEDS: busPIRone 15 MG Tab PO SCH ×2 (08:27→12:05)
[2020-03-02] MEDS: Montelukast 10 MG Tab PO SCH (08:28)
[2020-03-02] MEDS: Potassium Chloride 10 MEQ Tab.ER PO SCH ×3 (08:28→20:32)
[2020-03-02] MEDS: Propranolol 20 MG Tab PO SCH ×2 (08:28→20:32)
[2020-03-02] MEDS: Vancomycin 125 MG Cap PO SCH ×4 (08:28→20:33)
[2020-03-02] MEDS: Acetaminophen 325 MG Tab PO PRN (08:55)
[2020-03-02] MEDS: Sodium Chloride 0.9% 10 ML Syringe FLUSH PRN (14:02)
--- NOTE | 2020-03-02 15:29 | PCM.PN ---
- General Info Date of Service: 03/02/20 Subjective Update: Lolis thinks she had about 5 bowel movements overnight, incontinent with one at 3 am. She has been using bathroom independently and hasn't been letting nurses know when she has a bowel movement. States her cramping is not as bad, pain is improved. Tolerating clear liquids would like to try soft diet. Still feeling anxious and had some nightmares last night. No nausea. - Patient Data Vitals - Most Recent: Last Vital Signs Temp 97.6 F 03/02/20 12:00 Pulse 74 03/02/20 12:00 Resp 16 03/02/20 12:00 BP 114/70 03/02/20 12:00 Pulse Ox 99 03/02/20 12:00 Weight - Most Recent: 125 lb 12.8 oz I&O - Last 24 Hours: Intake & Output 03/02/20 03/02/20 03/02/20 06:59 14:59 22:59 Intake Total 1050 820 Balance 1050 820 Lab Results Last 24 Hours: Laboratory Results - last 24 hr 03/02/20 Range/Units 06:22 Sodium 142 (135-145) mmol/L Potassium 3.4 L (3.5-5.3) mmol/L Chloride 110 (100-110) mmol/L Carbon Dioxide 23 (21-32) mmol/L BUN 6 L (7-18) mg/dL Creatinine 0.8 (0.55-1.02) mg/dL Est Cr Clr Drug Dosing 62.84 mL/min Estimated GFR (MDRD) > 60 (>60) BUN/Creatinine Ratio 7.5 L (9-20) Glucose 102 (80-116) mg/dL Calcium 8.1 L (8.6-10.2) mg/dL Magnesium 1.4 L (1.8-2.5) mg/dL Med Orders - Current: Current Medications Acetaminophen (Tylenol) 650 mg PO Q4H PRN PRN Reason: Pain (Mild 1-3)/fever Last Admin: 03/02/20 08:55 Dose: 650 mg Documented by: Buspirone HCl (Buspar) 30 mg PO BID@0800,1200 [facility] Last Admin: 03/02/20 12:05 Dose: 30 mg Documented by: Enoxaparin Sodium (Lovenox) 40 mg SUBCUT Q24H [facility] Last Admin: 03/01/20 17:04 Dose: 40 mg Documented by: Lactated Ringer's (Ringers, Lactated) 1,000 mls @ 125 mls/hr IV ASDIRECTED [facility] Last Admin: 03/02/20 14:02 Dose: 125 mls/hr Documented by: Ketorolac Tromethamine (Toradol) 30 mg IVPUSH Q6H PRN PRN Reason: Pain (moderate 4-6) Last Admin: 03/01/20 20:56 Dose: 30 mg Documented by: Magnesium Oxide (Magnesium Oxide) 400 mg PO BEDTIME [facility] Montelukast Sodium (Singulair) 10 mg PO DAILY [facility] Last Admin: 03/02/20 08:28 Dose: 10 mg Documented by: Ondansetron HCl (Zofran Odt) 4 mg PO Q4H PRN PRN Reason: nausea, able to take PO Last Admin: 03/01/20 10:17 Dose: 4 mg Documented by: Pantoprazole Sodium (Protonix Iv) 40 mg IVPUSH Q12H [facility] Last Admin: 03/02/20 06:00 Dose: 40 mg Documented by: Potassium Chloride (Klor-Con 10) 10 meq PO TID [facility] Last Admin: 03/02/20 08:28 Dose: 10 meq Documented by: Prazosin HCl (Minpress) 2 mg PO BEDTIME [facility] Last Admin: 03/01/20 20:35 Dose: 2 mg Documented by: Propranolol HCl (Inderal) 20 mg PO BID [facility] Last Admin: 03/02/20 08:28 Dose: 20 mg Documented by: Sodium Chloride (Saline Flush) 10 ml FLUSH ASDIRECTED PRN PRN Reason: Keep Vein Open Last Admin: 03/02/20 14:02 Dose: 10 ml Documented by: Topiramate (Topamax) 150 mg PO BEDTIME [facility] Last Admin: 03/01/20 20:35 Dose: 150 mg Documented by: Vancomycin HCl (Vancocin 125 Mg Capsule) 125 mg PO QID [facility] Last Admin: 03/02/20 13:15 Dose: 125 mg Documented by: Venlafaxine HCl (Effexor Xr) 300 mg PO DAILY [facility] Last Admin: 03/02/20 08:27 Dose: 300 mg Documented by: Discontinued Medications Buspirone HCl (Buspar) 30 mg PO BID [facility] Buspirone HCl (Buspar) 30 mg PO BID [facility] Buspirone HCl (Buspar) 30 mg PO BID [facility] Last Admin: 02/29/20 20:55 Dose: 30 mg Documented by: Diatrizoate Meglum/Diatrizoate Sod (Gastrografin 37%) 30 ml PO . DIRECTED ONE Stop: 02/29/20 14:57 Last Admin: 02/29/20 16:41 Dose: 30 ml Documented by: Sodium Chloride (Normal Saline) 1,000 mls @ 500 mls/hr IV ASDIRECTED [facility] Stop: 03/01/20 15:44 Last Admin: 02/29/20 16:00 Dose: 500 mls/hr Documented by: Sodium Chloride (Normal Saline) 1,000 mls @ 125 mls/hr IV ASDIRECTED [facility] Last Admin: 03/01/20 02:51 Dose: 125 mls/hr Documented by: Lactated Ringer's (Ringers, Lactated) 1,000 mls @ 500 mls/hr IV BOLUS ONE Stop: 03/01/20 11:16 Last Admin: 03/01/20 09:46 Dose: 500 mls/hr Documented by: Iopamidol (Isovue-370 (76%)) 100 ml IV . DIRECTED ONE Stop: 02/29/20 14:57 Last Admin: 02/29/20 16:41 Dose: 70 ml Documented by: Lorazepam (Ativan) 1 mg IVPUSH ONETIME ONE Stop: 02/29/20 13:43 Last Admin: 02/29/20 13:55 Dose: 1 mg Documented by: Magnesium Chloride (Mag-64) 64 mg PO DAILY [facility] Last Admin: 03/01/20 10:17 Dose: 64 mg Documented by: Pantoprazole Sodium (Protonix Iv) 40 mg IVPUSH ONETIME ONE Stop: 02/29/20 13:55 Last Admin: 02/29/20 14:01 Dose: 40 mg Documented by: Propranolol HCl (Inderal) 20 mg PO BID [facility] Propranolol HCl (Inderal) 20 mg PO BID [facility] - Exam General: Alert, Oriented, Cooperative, No Acute Distress Lungs: Clear to Auscultation, Normal Respiratory Effort Cardiovascular: Regular Rate, Regular Rhythm GI/Abdominal Exam: Soft, No Distention, Guarding (LLQ), Tender, Abnormal Bowel Sounds (hyperactive BUQ, hypoactive BLQ). No: Rigid, Rebound Extremities: No Pedal Edema Sepsis Event Note - Evaluation Sepsis Screening Result: No Definite Risk - Focused Exam Vital Signs: Vital Signs Temp Pulse Resp BP Pulse Ox 03/02/20 12:00 97.6 F 74 16 114/70 99 03/02/20 08:00 97.9 F 72 16 124/70 98 - Problem List & Annotations (1) C. difficile colitis SNOMED Code(s): 151749910 Code(s): A04.72 - ENTEROCOLITIS D/T CLOSTRIDIUM DIFFICILE, NOT SPCF RECUR Status: Acute Current Visit: Yes Annotation/Comment:: Vancomycin oral capsules 125 mg qid x 10 days. Advance diet to soft. LR at 100 ml/hr, encourage oral liquids. Once tolerating diet, and not requiring IV fluids will be able to discharge to home. (2) Hypokalemia due to excessive gastrointestinal loss of potassium SNOMED Code(s): 39788608 Code(s): E87.6 - HYPOKALEMIA Status: Acute Current Visit: Yes Annotat ion/Comment:: KCL 10 mEq tid with Magnesium 400 mg at bedtime. (3) Hypomagnesemia SNOMED Code(s): 795910810 Code(s): E83.42 - HYPOMAGNESEMIA Status: Acute Current Visit: Yes Annotation/Comment:: magnesium 1.4, change to Magnesium oxide 400 mg at bedtime. Repeat labs. (4) Anxiety SNOMED Code(s): 02268779 Code(s): F41.9 - ANXIETY DISORDER, UNSPECIFIED Status: Chronic Current Visit: No (5) Migraine SNOMED Code(s): 80303223 Code(s): G43.909 - MIGRAINE, UNSP, NOT INTRACTABLE, WITHOUT STATUS MIGRAINOSUS Status: Chronic Priority: Medium Current Visit: No Onset Date: 01/10/14 (6) Panic disorder SNOMED Code(s): 678669995 Code(s): F41.0 - PANIC DISORDER [EPISODIC PAROXYSMAL ANXIETY] Status: Chronic Current Visit: No (7) Moderate recurrent major depression SNOMED Code(s): 491953664 Code(s): F33.1 - MAJOR DEPRESSIVE DISORDER, RECURRENT, MODERATE Status: Chronic Current Visit: No Annotation/Comment:: Reported TBI with co morbid major depression w anxiety, and will continue management with PCP and mental health professionals. (8) Status post Lindy fundoplication SNOMED Code(s): 511665733 Code(s): Z98.890 - OTHER SPECIFIED POSTPROCEDURAL STATES Status: Chronic Current Visit: Yes (9) PTSD (post-traumatic stress disorder) SNOMED Code(s): 47972111 Code(s): F43.10 - POST-TRAUMATIC STRESS DISORDER, UNSPECIFIED Status: Chronic Current Visit: Yes - Problem List Review Problem List Initiated/Reviewed/Updated: Yes - My Orders Last 24 Hours: My Active Orders 03/02/20 Lunch Soft Diet [DIET] 03/02/20 21:00 Magnesium Oxide 400 mg PO BEDTIME - Plan Plan:: 1. C diff colitis: Vancomycin 125 mg qid x 10 days. 2. Hypokalemia/hypomagnesemia: KCL 10 mEQ tid and Magnesium 400 mg at bedtime. Repeat labs tomorrow. 3. LR 100 ml/hr. Encourage oral liquids to keep up with the diarrhea. 4. Continue home medications for migraine, anxiety, depression, PTSD. 5.Adjust treatments as necessary.
[2020-03-02] MEDS: Enoxaparin 40 MG/0.4 ML Syringe SUBCUT SCH (18:06)
[2020-03-02] MEDS: Topiramate 50 MG Tab PO SCH (20:33)
[2020-03-02] MEDS: Prazosin 1 MG Cap PO SCH (20:33)
[2020-03-02] MEDS ORDERED: Magnesium Oxide 400 MG Tab PO SCH (21:00)
[2020-03-03] MEDS: Lactated Ringers 1,000 ML IV SCH (01:45)
[2020-03-03] MEDS: Pantoprazole 40 MG Vial IVPUSH SCH (05:40)
[2020-03-03] MEDS: busPIRone 15 MG Tab PO SCH ×2 (08:59→21:37)
[2020-03-03] MEDS: Potassium Chloride 10 MEQ Tab.ER PO SCH (09:00)
[2020-03-03] MEDS: Venlafaxine 150 MG Cap.ER PO SCH (09:00)
[2020-03-03] MEDS: Vancomycin 125 MG Cap PO SCH (09:01)
[2020-03-03] MEDS: Propranolol 20 MG Tab PO SCH (09:01)
[2020-03-03] MEDS: Montelukast 10 MG Tab PO SCH (09:01)
[2020-03-03 13:22] VITALS: BP 118/70; PULSE 72
--- NOTE | 2020-03-03 14:40 | PCM.DCSUM1 ---
Discharge Summary - Hospital Course HPI Initial Comments: Lolis is 54 yr old female who presented to clinic today for 4 day history of abdominal pain, diarrhea, nausea, muscle aches, fevers(did not take her temp), sweats, fatigue, weakness. She cannot throw up since having her lap Ruben for reflux. She was trying electrolytes, some other OTC meds at home but diarrhea persisted. She had antibiotics for her jaw around Jan 24. Labs in the clinic were: WBC 8.7, Hgb 13.7, platelets, 166. Sodium 141, Potassium 3.6, Chloride 110, CO2 21, BUN 13, Cr 1.11, Glucose 103, Calcium 9.0, total protein 6.3, Albumin 3.8, Total bilirubin 0.4, Alkaline phosphatase 249, AST 77, ALT 176. She was sent over to ER for further workup: Lipase 431, CRP 13.8, Lactic acid 0.8. CT abdomen/pelvis showed extensive colitis. Diagnosis: Stroke: No - Discharge Data Discharge Date: 03/03/20 Discharge Disposition: Home, Self-Care 01 Condition: Good - Referral to Home Health Primary Care Physician: Dorian Tom MD - Discharge Diagnosis/Problem(s) (1) C. difficile colitis SNOMED Code(s): 930611274 ICD Code: A04.72 - ENTEROCOLITIS D/T CLOSTRIDIUM DIFFICILE, NOT SPCF RECUR Status: Acute Problem Details: Vancomycin oral capsules 125 mg qid x 10 days. Advance diet as tolerated Discharge today. (2) Hypokalemia due to excessive gastrointestinal loss of potassium SNOMED Code(s): 80524363 ICD Code: E87.6 - HYPOKALEMIA Status: Acute Problem Details: 3.8, corrected. (3) Hypomagnesemia SNOMED Code(s): 834951513 ICD Code: E83.42 - HYPOMAGNESEMIA Status: Acute Problem Details: magnesium 1.7, Magnesium oxide 400 mg at bedtime. Repeat labs as outpatient. (4) Anxiety SNOMED Code(s): 81598942 ICD Code: F41.9 - ANXIETY DISORDER, UNSPECIFIED Status: Chronic (5) Migraine SNOMED Code(s): 17732231 ICD Code: G43.909 - MIGRAINE, UNSP, NOT INTRACTABLE, WITHOUT STATUS MIGRAINOSUS Status: Chronic Priority: Medium Onset Date: 01/10/14 (6) Panic disorder SNOMED Code(s): 542743431 ICD Code: F41.0 - PANIC DISORDER [EPISODIC PAROXYSMAL ANXIETY] Status: Chronic (7) Moderate recurrent major depression SNOMED Code(s): 938961976 ICD Code: F33.1 - MAJOR DEPRESSIVE DISORDER, RECURRENT, MODERATE Status: Chronic Problem Details: Reported TBI with co morbid major depression w anxiety, and will continue management with PCP and mental health professionals. (8) Status post Lindy fundoplication SNOMED Code(s): 064071269 ICD Code: Z98.890 - OTHER SPECIFIED POSTPROCEDURAL STATES Status: Chronic (9) PTSD (post-traumatic stress disorder) SNOMED Code(s): 16548754 ICD Code: F43.10 - POST-TRAUMATIC STRESS DISORDER, UNSPECIFIED Status: Chronic - Patient Summary/Data Hospital Course: CT abdomen/pelvis showed extensive colitis, had been on recent antibiotics, Keflex and received 1 dose of Clindamycin in past month per Dr Toro Ashford her maxillofacial surgeon. C-Difficile antigen and toxin were positive. Was started on IV fluids from ER. Received 2 liters in ER, then changed to LR at 125 ml/hr, eventually decreased down to 75 ml/hr, had improved oral intake, saline locked. Started on Vancomycin 125 mg qid, her stools improved during hospital stay, got down to scant, soft stools on day of discharge. Potassium was low on admission, KCL 10 mEq tid with Magnesium 64 mg daily started initially, did not have improvement with labs so increased her Magnesium 400 mg at bedtime, magnesium was up to 1.7 and potassium 3.8 today. Tolerating her soft diet. Received 9 doses of vancomycin so will go home with 31 more doses to complete 10 day course. Spoke with Dr Ashford as she is due to have oral surgery on Mar 15, advised him of her diagnosis and he stated he'll probably use Flagyl or Vancomycin for preoperative antibiotics. - Patient Instructions Diet: Regular Diet as Tolerated Activity: As Tolerated Driving: May Drive Today Showering/Bathing: May Shower Notify Provider of: Fever, Increased Pain Other/Special Instructions: Follow up with Dr Tom or Dr Tay in 1 week to recheck magnesium and potassium. - Discharge Plan *PRESCRIPTION DRUG MONITORING PROGRAM REVIEWED*: Not Applicable *COPY OF PRESCRIPTION DRUG MONITORING REPORT IN PATIENT SARTHAK: Not Applicable Prescriptions/Med Rec: Magnesium Oxide 400 mg PO BEDTIME 7 Days #7 tablet Vancomycin HCl 125 mg PO QID 8 Days #31 capsule Home Medications: Home Meds Montelukast [Singulair] 10 mg PO DAILY 03/15/13 [History] Topiramate [Topamax] 150 mg PO BEDTIME 03/15/13 [History] busPIRone [Buspar] 30 mg PO 08,12 03/15/13 [History] Cholecalciferol (Vitamin D3) [Vitamin D] 2,000 unit PO DAILY 09/27/18 [History] Propranolol [Inderal] 20 mg PO BID 09/27/18 [History] Venlafaxine HCl [Venlafaxine HCl ER] 300 mg PO DAILY 09/27/18 [History] Prazosin HCl [Prazosin] 2 mg PO BEDTIME 01/18/19 [History] Acetaminophen [Tylenol Extra Strength] 1,000 mg PO Q4H PRN 02/29/20 [History] Cyanocobalamin/FA/Pyridoxine [B Complex-Folic Acid] 1 tab PO DAILY 02/29/20 [History] Cyclobenzaprine [Flexeril] 5 mg PO TID PRN 02/29/20 [History] Famotidine 20 mg PO DAILY PRN 02/29/20 [History] Fluticasone Propionate [Flonase] 2 spray NASBOTH DAILY 02/29/20 [History] Multivitamin 2 tab PO DAILY 02/29/20 [History] Java-3 Fatty Acids [Maxepa] 1 cap PO DAILY 02/29/20 [History] Magnesium Oxide 400 mg PO BEDTIME 7 Days #7 tablet 03/03/20 [Rx] Vancomycin HCl 125 mg PO QID 8 Days #31 capsule 03/03/20 [Rx] Patient Handouts: Clostridioides Difficile Infection, [id number], Colitis, Fall Prevention in Hospitals, Adult, Preventing Antibiotic Resistance, Venous Thromboembolism Prevention, Magnesium Salts capsules or tablets, immediate release, Vancomycin capsules Forms: ED Department Discharge Referrals: Dorian Tom MD [Primary Care Provider] - - Discharge Summary/Plan Comment DC Time >30 min.: No - General Info Date of Service: 03/03/20 Subjective Update: Lolis is doing better today, stools have slowed down, having scanty soft stools currently. No nausea. Tolerating soft diet. Drinking water and liquids better. Functional Status: Reports: Pain Controlled, Tolerating Diet, Ambulating, Urinating - Patient Data Vitals - Most Recent: Last Vital Signs Temp 97.0 F 03/03/20 08:00 Pulse 72 03/03/20 08:00 Resp 16 03/03/20 08:00 BP 118/70 03/03/20 08:00 Pulse Ox 98 03/03/20 08:00 Weight - Most Recent: 123 lb I&O - Last 24 hours: Intake & Output 03/02/20 03/03/20 03/03/20 22:59 06:59 14:59 Intake Total 751 526 225 Balance 751 526 225 Lab Results - Last 24 hrs: Laboratory Results - last 24 hr 03/03/20 Range/Units 08:15 Sodium 144 (135-145) mmol/L Potassium 3.8 (3.5-5.3) mmol/L Chloride 111 H (100-110) mmol/L Carbon Dioxide 25 (21-32) mmol/L BUN 5 L (7-18) mg/dL Creatinine 0.8 (0.55-1.02) mg/dL Est Cr Clr Drug Dosing 62.84 mL/min Estimated GFR (MDRD) > 60 (>60) BUN/Creatinine Ratio 6.3 L (9-20) Glucose 104 (80-116) mg/dL Calcium 8.5 L (8.6-10.2) mg/dL Magnesium 1.7 L (1.8-2.5) mg/dL Med Orders - Current: Current Medications Discontinued Medications Acetaminophen (Tylenol) 650 mg PO Q4H PRN PRN Reason: Pain (Mild 1-3)/fever Last Admin: 03/02/20 08:55 Dose: 650 mg Documented by: Buspirone HCl (Buspar) 30 mg PO BID [facility] Buspirone HCl (Buspar) 30 mg PO BID [facility] Buspirone HCl (Buspar) 30 mg PO BID [facility] Last Admin: 02/29/20 20:55 Dose: 30 mg Documented by: Buspirone HCl (Buspar) 30 mg PO BID@0800,1200 [facility] Last Admin: 03/03/20 08:59 Dose: 30 mg Documented by: Diatrizoate Meglum/Diatrizoate Sod (Gastrografin 37%) 30 ml PO . DIRECTED ONE Stop: 02/29/20 14:57 Last Admin: 02/29/20 16:41 Dose: 30 ml Documented by: Enoxaparin Sodium (Lovenox) 40 mg SUBCUT Q24H [facility] Last Admin: 03/02/20 18:06 Dose: 40 mg Documented by: Sodium Chloride (Normal Saline) 1,000 mls @ 500 mls/hr IV ASDIRECTED [facility] Stop: 03/01/20 15:44 Last Admin: 02/29/20 16:00 Dose: 500 mls/hr Documented by: Sodium Chloride (Normal Saline) 1,000 mls @ 125 mls/hr IV ASDIRECTED [facility] Last Admin: 03/01/20 02:51 Dose: 125 mls/hr Documented by: Lactated Ringer's (Ringers, Lactated) 1,000 mls @ 75 mls/hr IV ASDIRECTED [facility] Last Admin: 03/03/20 01:45 Dose: 75 mls/hr Documented by: Lactated Ringer's (Ringers, Lactated) 1,000 mls @ 500 mls/hr IV BOLUS ONE Stop: 03/01/20 11:16 Last Admin: 03/01/20 09:46 Dose: 500 mls/hr Documented by: Iopamidol (Isovue-370 (76%)) 100 ml IV . DIRECTED ONE Stop: 02/29/20 14:57 Last Admin: 02/29/20 16:41 Dose: 70 ml Documented by: Ketorolac Tromethamine (Toradol) 30 mg IVPUSH Q6H PRN PRN Reason: Pain (moderate 4-6) Last Admin: 03/01/20 20:56 Dose: 30 mg Documented by: Lorazepam (Ativan) 1 mg IVPUSH ONETIME ONE Stop: 02/29/20 13:43 Last Admin: 02/29/20 13:55 Dose: 1 mg Documented by: Magnesium Chloride (Mag-64) 64 mg PO DAILY [facility] Last Admin: 03/01/20 10:17 Dose: 64 mg Documented by: Magnesium Oxide (Magnesium Oxide) 400 mg PO BEDTIME [facility] Last Admin: 03/02/20 20:32 Dose: 400 mg Documented by: Montelukast Sodium (Singulair) 10 mg PO DAILY [facility] Last Admin: 09/24/20 09:01 Dose: 10 mg Documented by: Ondansetron HCl (Zofran Odt) 4 mg PO Q4H PRN PRN Reason: nausea, able to take PO Last Admin: 03/01/20 10:17 Dose: 4 mg Documented by: Pantoprazole Sodium (Protonix Iv) 40 mg IVPUSH ONETIME ONE Stop: 02/29/20 13:55 Last Admin: 02/29/20 14:01 Dose: 40 mg Documented by: Pantoprazole Sodium (Protonix Iv) 40 mg IVPUSH Q12H [facility] Last Admin: 03/03/20 05:40 Dose: 40 mg Documented by: Potassium Chloride (Klor-Con 10) 10 meq PO TID [facility] Last Admin: 03/03/20 09:00 Dose: 10 meq Documented by: Prazosin HCl (Minpress) 2 mg PO BEDTIME [facility] Last Admin: 03/02/20 20:33 Dose: 2 mg Documented by: Propranolol HCl (Inderal) 20 mg PO BID [facility] Propranolol HCl (Inderal) 20 mg PO BID [facility] Propranolol HCl (Inderal) 20 mg PO BID [facility] Last Admin: 03/03/20 09:01 Dose: 20 mg Documented by: Sodium Chloride (Saline Flush) 10 ml FLUSH ASDIRECTED PRN PRN Reason: Keep Vein Open Last Admin: 03/02/20 14:02 Dose: 10 ml Documented by: Topiramate (Topamax) 150 mg PO BEDTIME [facility] Last Admin: 03/02/20 20:33 Dose: 150 mg Documented by: Vancomycin HCl (Vancocin 125 Mg Capsule) 125 mg PO QID [facility] Last Admin: 03/03/20 09:01 Dose: 125 mg Documented by: Venlafaxine HCl (Effexor Xr) 300 mg PO DAILY [facility] Last Admin: 03/03/20 09:00 Dose: 300 mg Documented by: - Exam General: Reports: Alert, Oriented, Cooperative, No Acute Distress Lungs: Reports: Clear to Auscultation, Normal Respiratory Effort Cardiovascular: Reports: Regular Rate, Regular Rhythm GI/Abdominal Exam: Normal Bowel Sounds, Soft, No Distention, Tender (mild TTP in LLQ) Extremities: No Pedal Edema
== END 2020-03-03 12:10 | disposition home or self-care (01) | DRG 372 ==
LOC: FB.ED 13:15 → FB.MS 17:34
PROVIDERS: ADMIT Family Medicine; ATTEND Family Medicine
DX: K52.9 Noninfective gastroenteritis and colitis, unspecified (principal); A04.72 Enterocolitis due to Clostridium difficile, not specified as recurrent; H54.7 Unspecified visual loss; F33.1 Major depressive disorder, recurrent, moderate; F32.9 Major depressive disorder, single episode, unspecified; I10 Essential (primary) hypertension; E87.6 Hypokalemia; Z90.710 Acquired absence of both cervix and uterus; E83.42 Hypomagnesemia; F41.9 Anxiety disorder, unspecified; G43.909 Migraine, unspecified, not intractable, without status migrainosus; F43.10 Post-traumatic stress disorder, unspecified; J44.9 Chronic obstructive pulmonary disease, unspecified; K21.9 Gastro-esophageal reflux disease without esophagitis; Z96.659 Presence of unspecified artificial knee joint; K57.30 Diverticulosis of large intestine without perforation or abscess without bleeding; F41.0 Panic disorder [episodic paroxysmal anxiety]; Z98.890 Other specified postprocedural states; Z88.0 Allergy status to penicillin; Z88.8 Allergy status to other drugs, medicaments and biological substances; Z88.5 Allergy status to narcotic agent; Z88.6 Allergy status to analgesic agent; Z88.1 Allergy status to other antibiotic agents; Z79.899 Other long term (current) drug therapy; Z90.49 Acquired absence of other specified parts of digestive tract
CPT/HCPCS: 36415; 74177; 80307; 81001; 82272; 83605; 83690; 86140; 96361; 96374; 96375; 99284; 99285; C9113; J2060; J7030 ×2; Q9963; Q9967; 80048; 80053; 83735; 85025; 87045; 87046; 87230; 87427; A9270-GY; J1650; J1885; J7120

== ENCOUNTER 2020-09-03 13:00 | Emergency (ER) | payer MEDICARE, MEDICAID ==
[2020-09-03] MEDS ORDERED: Sodium Chloride 0.9% 1,000 ML IV ONE ×2 (13:33→14:30)
[2020-09-03] MEDS ORDERED: Metoclopramide 10 MG/2 ML SDV IVPUSH ONE (13:34)
[2020-09-03] MEDS ORDERED: Ondansetron 4 MG/2 ML SDV IVPUSH ONE (13:36)
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
[2020-09-03] MEDS ORDERED: Ketorolac 30 MG/ML SDV IVPUSH ONE (14:30)
[2020-09-03] MEDS ORDERED: Ondansetron 4 MG Tab.DIS PO ONE (15:09)
[2020-09-03] MEDS ORDERED: Acetaminophen 500 MG Tab PO ONE (15:10)
[2020-09-03 15:46] VITALS: BP 118/84; PULSE 68
== END 2020-09-03 15:30 | disposition home or self-care (01) ==
LOC: FB.ED 13:00
DX: S09.90XA Unspecified injury of head, initial encounter (principal); E86.0 Dehydration; I12.9 Hypertensive chronic kidney disease with stage 1 through stage 4 chronic kidney disease, or unspecified chronic kidney disease; N18.9 Chronic kidney disease, unspecified; N17.9 Acute kidney failure, unspecified; R11.0 Nausea; J44.9 Chronic obstructive pulmonary disease, unspecified; K21.9 Gastro-esophageal reflux disease without esophagitis; Z88.8 Allergy status to other drugs, medicaments and biological substances; Z88.0 Allergy status to penicillin; Z88.6 Allergy status to analgesic agent; Z88.5 Allergy status to narcotic agent; Z88.1 Allergy status to other antibiotic agents; Z79.899 Other long term (current) drug therapy; W18.30XA Fall on same level, unspecified, initial encounter; Y92.009 Unspecified place in unspecified non-institutional (private) residence as the place of occurrence of the external cause
CPT/HCPCS: 36415; 70450; 80053; 81001; 83735; 85025; 86140; 96374; 96375; 99283; 99284-25; A9270-GY; J1885; J2405; J7030

== ENCOUNTER 2022-02-02 05:01 | Emergency (ER) | payer MEDICARE, MEDICAID ==
[2022-02-02] MEDS: LORazepam 1 MG Tab PO ONE (05:34)
[2022-02-02] MEDS ORDERED: Sodium Chloride 0.9% 10 ML Syringe FLUSH PRN (06:00)
[2022-02-02] MEDS: Ondansetron 4 MG/2 ML SDV IVPUSH ONE ×2 (06:10→09:36)
[2022-02-02] MEDS: Sodium Chloride 0.9% 1,000 ML IV SCH ×2 (06:10→09:45)
[2022-02-02 06:15] LABS: ESTIMATED GFR 66 mL/min (>60)
[2022-02-02] MEDS: Morphine 2 MG/ML SYRINGE IVPUSH ONE (06:19)
[2022-02-02] MEDS: Iopamidol 755 Mg/ML 75 ML Bottle IV ONE (07:07)
[2022-02-02] MEDS: Morphine 2 MG/ML SYRINGE IVPUSH STA (09:35)
[2022-02-02 13:25] VITALS: BP 107/74; PULSE 77
== END 2022-02-02 12:30 | disposition home or self-care (01) ==
LOC: FB.ED 05:01
DX: K56.699 Other intestinal obstruction unspecified as to partial versus complete obstruction (principal); J44.9 Chronic obstructive pulmonary disease, unspecified; F41.9 Anxiety disorder, unspecified; I10 Essential (primary) hypertension; Z88.6 Allergy status to analgesic agent; Z88.0 Allergy status to penicillin; Z88.5 Allergy status to narcotic agent; Z88.1 Allergy status to other antibiotic agents; Z79.899 Other long term (current) drug therapy; Z90.49 Acquired absence of other specified parts of digestive tract; Z90.710 Acquired absence of both cervix and uterus
CPT/HCPCS: 36415; 74177; 80053; 81001; 82150; 83690; 85025; 96361; 96374; 96375; 96376; 99283; 99284; A9270; J2270; J2405; J7030; Q9967

== ENCOUNTER 2023-10-09 19:44 | Emergency (ER) | payer MEDICARE, MEDICAID ==
[2023-10-09] MEDS ORDERED: Naloxone 0.4 MG/ML SDV IVPUSH PRN (20:11)
[2023-10-09] MEDS: Sodium Chloride 0.9% 10 ML Syringe FLUSH PRN (20:21)
[2023-10-09] MEDS: Ondansetron 4 MG/2 ML SDV IVPUSH ONE (20:21)
[2023-10-09] MEDS: HYDROmorphone 2 MG/ML SDV IVPUSH ONE (20:22)
[2023-10-09] MEDS: diphenhydrAMINE 50 MG/ML SDV IVPUSH ONE (20:25)
[2023-10-09 21:32] VITALS: BP 159/99; PULSE 87
== END 2023-10-09 21:10 | disposition home or self-care (01) ==
LOC: FB.ED 19:44
DX: G43.909 Migraine, unspecified, not intractable, without status migrainosus (principal); I10 Essential (primary) hypertension; J44.9 Chronic obstructive pulmonary disease, unspecified; K21.9 Gastro-esophageal reflux disease without esophagitis; Z90.49 Acquired absence of other specified parts of digestive tract; Z90.710 Acquired absence of both cervix and uterus; Z88.8 Allergy status to other drugs, medicaments and biological substances; Z88.6 Allergy status to analgesic agent; Z88.0 Allergy status to penicillin; Z79.899 Other long term (current) drug therapy
CPT/HCPCS: 96374; 96375; 99283; 99283-25; J1170; J1200; J2405; J3490

== ENCOUNTER 2024-09-28 20:17 | Emergency (ER) | payer MEDICARE, MEDICAID ==
[2024-09-28] MEDS ORDERED: Ondansetron 4 MG Tab.DIS PO ONE (20:18)
[2024-09-28] MEDS: Ondansetron 4 MG Tab.DIS PO ONE (21:11)
[2024-09-28 21:47] VITALS: BP 105/78; PULSE 86
== END 2024-09-28 21:55 | disposition home or self-care (01) ==
LOC: FB.ED 20:17
DX: B34.9 Viral infection, unspecified (principal); I10 Essential (primary) hypertension; J44.89 Other specified chronic obstructive pulmonary disease; Z79.82 Long term (current) use of aspirin; Z79.899 Other long term (current) drug therapy; Z88.5 Allergy status to narcotic agent
CPT/HCPCS: 87428; 99283; 99284; Q0162

== ENCOUNTER 2024-12-04 22:18 | Emergency (ER) | payer MEDICARE, MEDICAID ==
[2024-12-04] MEDS: Sodium Chloride 0.9% 10 ML Syringe FLUSH PRN (22:46)
[2024-12-04] MEDS ORDERED: Sodium Chloride 0.9% 10 ML Syringe FLUSH PRN (23:07)
[2024-12-04] MEDS: Ondansetron 4 MG/2 ML SDV IVPUSH ONE (23:18)
[2024-12-04] MEDS: Sodium Chloride 0.9% 1,000 ML IV ONE (23:18)
[2024-12-04 23:19] LABS: BASOPHILS PERCENT AUTO 0.5 % (0.2-1.5); EOSINOPHILS ABSOLUTE AUTO 0.1 x10-3/uL (0.0-0.8); EOSINOPHILS PERCENT AUTO 0.9 % (0.6-8.1); HEMATOCRIT 41.5 % (34.2-48.2); HEMOGLOBIN 13.9 g/dL (11.4-15.5); LYMPHOCYTES PERCENT AUTO 15.3 % (18.4-52.1); MEAN CORPUSCULAR HEMOGLOBIN 30.1 pg (23.9-33.9); MEAN CORPUSCULAR HGB CONC 33.5 g/dL (31.9-34.8); MEAN CORPUSCULAR VOLUME 89.7 fL (76.7-100.5); MEAN PLATELET VOLUME 6.8 fL (7.1-12.4); MONOCYTES ABSOLUTE AUTO 0.6 x10-3/uL (0.3-1.0); MONOCYTES PERCENT AUTO 8.3 % (4.4-15.7); PLATELET COUNT,PLT 236 x10(3)uL (151-488); RED BLOOD CELL COUNT 4.63 x10(6)uL (3.60-5.20); RED CELL DISTRIBUTION WIDTH 12.9 % (12.3-16.5); WHITE BLOOD CELL COUNT,WBC 6.7 x10-3/uL (3.0-10.3)
[2024-12-04] MEDS: Ketorolac 15 MG/ML SDV IVPUSH ONE (23:20)
[2024-12-04 23:24] LABS: BLOOD UREA NITROGEN,BUN 18 mg/dL (7-18); BUN/CREATININE RATIO 16.4 (9-20); CARBON DIOXIDE,CO2 22 mmol/L (21-32); CHLORIDE,CL 102 mmol/L (100-110); CREATININE 1.1 mg/dL (0.55-1.02); EST CRCL DRUG DOSING (CG) 43.37 mL/min; ESTIMATED GFR 58 mL/min (>60); GLUCOSE RANDOM 122 mg/dL (80-116); POTASSIUM,K 3.6 mmol/L (3.5-5.3); SODIUM,NA 132 mmol/L (135-145)
[2024-12-04 23:30] LABS: A/G RATIO 1.2; ALANINE AMINOTRANSFERASE,ALT 24 U/L (12-36); ALBUMIN 3.5 g/dL (3.5-5.2); ALKALINE PHOSPHATASE 174 IU/L (56-112); ASPARTATE AMNIOTRANSFERASE,AST 18 IU/L (5-25); BILIRUBIN TOTAL 0.3 mg/dL (0.1-1.3); PROTEIN TOTAL,TP 6.4 g/dL (6.0-8.0)
[2024-12-04 23:33] LABS: LACTIC ACID 0.6 mmol/L (0.4-2.0)
[2024-12-04 23:38] LABS: LIPASE 116 U/L (16-77)
[2024-12-04 23:39] LABS: C-REACTIVE PROTEIN < 0.50 mg/dL (<0.50)
[2024-12-05 00:24] VITALS: BP 110/74; PULSE 76
== END 2024-12-05 00:45 ==
LOC: FB.ED 22:18
DX: K56.609 Unspecified intestinal obstruction, unspecified as to partial versus complete obstruction (principal); I10 Essential (primary) hypertension; J44.89 Other specified chronic obstructive pulmonary disease; K21.9 Gastro-esophageal reflux disease without esophagitis; Z88.0 Allergy status to penicillin; Z88.8 Allergy status to other drugs, medicaments and biological substances; Z79.899 Other long term (current) drug therapy; Z86.16 Personal history of COVID-19; Z90.49 Acquired absence of other specified parts of digestive tract; Z90.710 Acquired absence of both cervix and uterus
CPT/HCPCS: 36415; 74176; 80053; 83605; 83690; 85025; 86140; 96361; 96374; 96375; 99285; 99285-25; J1885; J2405; J7030